=== PATIENT | female | born 1960 | race Caucasian/White ===

== ENCOUNTER → 2016-10-12 | Outpatient (CLI) | payer OTHER, MEDICARE ==
--- NOTE | 2016-10-12 09:40 | RAD ---
EXAM DESCRIPTION: XR KNEE 4 OR MORE VIEWS CLINICAL HISTORY: 55 y/o ,F, KNEE PAIN COMPARISON: None. IMPRESSION: Two views of the left knee. Arthroplasty noted. No hardware failure. No osseous lesion noted. Negative for fracture. No significant joint effusion. Electronically signed by: Arnaud Degroot MD 10/12/2016 09:39
== END ==
LOC: RAD 08:03
PROVIDERS: ATTEND Orthopaedic Surgery
DX: M25.562 Pain in left knee (principal); Z96.652 Presence of left artificial knee joint

== ENCOUNTER → 2016-10-13 | Outpatient (CLI) | payer OTHER, MEDICARE ==
--- NOTE | 2016-10-13 15:37 | MAM ---
EXAM DESCRIPTION: MAMMO BREAST SCREENING BILATERAL CAD, images were reviewed with CAD technology, R2 computer-aided detection. CLINICAL HISTORY: [facility]. COMPARISON: 2010. FINDINGS: Routine views are obtained. Scattered glandular pattern has a slightly nodular contour and is of increased mammographic density period pattern remains stable. No dominant mass, architectural distortion or clustered microcalcification.. IMPRESSION: Benign exam. BIRAD CATEGORY: 2 BENIGN RECOMMENDATIONS: FOLLOW-UP: Routine screening mammogram in one year. According to the [employer], yearly mammograms are recommended starting at age 40 and continuing as long as a woman is in good health. Any breast change noted on a breast self-exam should be reported promptly to the patient's healthcare provider. Breast MRI is recommended for women with an approximately 20-25% or greater lifetime risk of breast cancer, including women with a strong family history of breast or ovarian cancer and women who have been treated for Hodgkin's disease. Electronically signed by: Sharda Zuluaga 10/13/2016 15:35
== END ==
LOC: MAMMO 13:34
PROVIDERS: ATTEND Family Medicine
DX: Z12.31 Encounter for screening mammogram for malignant neoplasm of breast (principal)
CPT/HCPCS: 77052; G0202

== ENCOUNTER → 2016-10-19 | Outpatient (CLI) | payer OTHER, MEDICARE ==
--- NOTE | 2016-10-19 15:07 | MRI ---
EXAM DESCRIPTION: MR LUMBAR SPINE WITHOUT IV CONTRAST CLINICAL HISTORY: 55 y/o F, LUMBAR PAIN COMPARISON: None TECHNIQUE: Multi planar, multi sequence imaging of the lumbar spine was acquired without IV contrast. FINDINGS: Vertebral body height, alignment and marrow signal are unremarkable. Mild disc desiccation at L2-3 through L5-S1. No intervertebral disc height loss to posterior annular fissure noted at L5-S1. Conus terminates at L1-L2. L5-S1: Right facet degeneration. No spinal canal or neural foraminal narrowing. L4-L5: Bilateral mild facet degeneration. No spinal canal narrowing. There is mild bilateral neural foraminal narrowing from facet degeneration. No exiting nerve root contact. L3-L4: Mild facet degeneration. No spinal canal or neural foraminal narrowing. L2-L3: Unremarkable. L1-L2: Unremarkable. IMPRESSION: Today's exam is nearly normal except for mild facet degeneration from L3-4 through L5-S1 and mild bilateral neural foraminal narrowing at L4-5 only. No exiting or descending nerve root contact. No spinal canal narrowing. Electronically signed by: Arnaud Degroot MD 10/19/2016 15:06
== END ==
LOC: MRI 11:08
PROVIDERS: ATTEND Physician Assistant
DX: M47.816 Spondylosis without myelopathy or radiculopathy, lumbar region (principal); G89.4 Chronic pain syndrome; M54.5 Low back pain

== ENCOUNTER → 2016-11-02 | Outpatient (CLI) | payer OTHER, MEDICARE | END | disposition home or self-care (01) | LOC: GMAL 14:35 | PROVIDERS: ATTEND Family Medicine | DX: N39.0 Urinary tract infection, site not specified (principal) ==

== ENCOUNTER → 2016-12-09 | Outpatient (CLI) | payer OTHER, MEDICARE | END | disposition home or self-care (01) | LOC: GMA 16:53 | PROVIDERS: ATTEND Nurse Practitioner Acute Care | DX: N39.0 Urinary tract infection, site not specified (principal) ==

== ENCOUNTER → 2016-12-29 | Outpatient (CLI) | payer OTHER, MEDICARE | END | disposition home or self-care (01) | LOC: GMAL 10:57 | PROVIDERS: ATTEND Family Medicine | DX: N39.0 Urinary tract infection, site not specified (principal) ==

== ENCOUNTER → 2017-02-01 | Outpatient (CLI) | payer OTHER, MEDICARE ==
--- NOTE | 2017-02-01 14:26 | MAM ---
EXAM DESCRIPTION: Diagnostic Mammo,Left CLINICAL HISTORY: 56 years, Female, soreness in the upper outer aspect left breast COMPARISON: October 13, 2016 TECHNIQUE: CC and MLO digital mammograms with computer aided detection. FINDINGS: There are scattered fibroglandular densities. There is no dominant mass nor any suspicious microcalcifications. Benign microcalcifications are present. IMPRESSION: BI-RADS 2: BENIGN FOLLOW-UP: Routine mammography screening. Electronically signed by: Can Mcgraw MD 02/01/2017 2:25 PM CDT
== END | disposition home or self-care (01) ==
LOC: MAMMO 13:30
PROVIDERS: ATTEND Family Medicine
DX: N63 Unspecified lump in breast (principal)

== ENCOUNTER → 2017-03-04 | Outpatient (CLI) | payer OTHER, MEDICARE | LOC: GMA 17:46 | PROVIDERS: ATTEND Nurse Practitioner Acute Care | DX: N39.0 Urinary tract infection, site not specified (principal); Z87.440 Personal history of urinary (tract) infections ==

== ENCOUNTER → 2017-03-18 | Outpatient (CLI) | payer OTHER, MEDICARE | END | disposition home or self-care (01) | LOC: GMA 14:33 | PROVIDERS: ATTEND Nurse Practitioner Acute Care | DX: N39.0 Urinary tract infection, site not specified (principal) ==

== ENCOUNTER 2017-03-29 10:05 | Emergency (ER) | payer OTHER, MEDICARE ==
[2017-03-29 10:47] VITALS: BP 136/88; TEMP 98.7; O2SAT 94
--- NOTE | 2017-03-29 11:51 | ED.PDOC ---
History of Present Illness - General Chief Complaint: Problem Stated Complaint: uti Time Seen by Provider: 03/29/17 11:46 Source: patient Exam Limitations: no limitations - History of Present Illness Initial Comments: Patient presents complaining of bladder discomfort. Has chronic UTIs and was treated two days ago with rocephin. She says she is on chronic keflex. She also has chronic urinary retention. The discomfort is described as an intermittent cramping feeling. No other complaints. Timing/Duration: changing over time Severity: mild Improving Factors: nothing Worsening Factors: nothing Associated Symptoms: denies symptoms Allergies/Adverse Reactions: Allergies Butorphanol [From Stadol] Allergy (Severe, Verified 02/10/16 11:47) Cefprozil [From Cefzil] Allergy (Severe, Verified 02/10/16 11:47) Erythromycin Allergy (Severe, Verified 02/10/16 11:47) Hydromorphone [From Dilaudid] Allergy (Severe, Verified 02/10/16 11:47) Meperidine [From Demerol HCl] Allergy (Severe, Verified 02/10/16 11:47) Nalbuphine [From Nubain] Allergy (Severe, Verified 02/10/16 11:47) Penicillins Allergy (Severe, Verified 02/10/16 11:47) Zonisamide [From Zonegran] Allergy (Intermediate, Verified 02/10/16 11:47) Protective Adhesive Powder Adverse Reaction (Intermediate, Verified 02/10/16 11: 47) Other Causes red rash Home Medications: Ambulatory Orders Amlodipine Besylate [Norvasc] 10 mg PO DAILY 01/20/13 Citalopram HBr [Celexa] 20 mg PO HS 01/20/13 Clopidogrel Bisulfate [Plavix] 75 mg PO QD 01/20/13 Albuterol Sulfate [Proair Hfa] 108 mcg IN PRN PRN 02/07/14 Acetaminophen W/ Codeine [Tylenol W/ CODEINE #3] 1 ea PO PRN 09/23/15 Albuterol Sulfate Nebs [Proventil Nebs] 2.5 mg INH PRN PRN 09/23/15 Aspirin [Baby Aspirin] 81 mg PO QD 09/23/15 Esomeprazole Magnesium [Nexium] 40 mg PO DAILY 09/23/15 Folic Acid 400 mcg PO BID 09/23/15 Gabapentin 600 mg PO BID 09/23/15 Montelukast [Singulair] 10 mg PO BEDTIME 09/23/15 Nitroglycerin [Nitrostat] 0.4 mg SL PRN 09/23/15 Non-Formulary Medication 60 gm WKLY 09/23/15 Maxwell-3 Fatty Acids [Fish Oil] 1,200 mg PO BID 09/23/15 Potassium Gluconate 595 mg PO BID 09/23/15 Probiotic Product [Probiotic] 1 tab PO DAILY 09/23/15 Topiramate [Topamax] 200 mg PO BID 09/23/15 Vzfsmhi-Yqbixqxl-Hqljt Tab [Fiorinal Tab] 1 ea PO PRN PRN 12/23/15 Ibuprofen [Advil] 200 mg PO PRN 12/23/15 Cyclobenzaprine HCl [Flexeril] 10 mg PO BID PRN #20 tab 12/28/15 HYDROcodone 5MG/APAP 325MG [[place] 5/325] 1 ea PO Q4H PRN #90 tab 12/28/15 Potassium Chloride Tab [Micro-K] 10 meq PO DAILYBK #30 tab 12/28/15 Rivaroxaban [Xarelto] 10 mg PO QD #9 tab 12/28/15 Review of Systems - Review of Systems Constitutional: States: no symptoms reported EENTM: States: no symptoms reported Respiratory: States: no symptoms reported Cardiology: States: no symptoms reported Gastrointestinal/Abdominal: States: no symptoms reported Genitourinary: States: see HPI Musculoskeletal: States: no symptoms reported Skin: States: no symptoms reported Neurological: States: no symptoms reported Endocrine: States: no symptoms reported Hematologic/Lymphatic: States: no symptoms reported Past Medical History (General) - Patient Medical History Hx Seizures: No Hx Stroke: No Hx Dementia: No Hx Asthma: Yes Hx of COPD: Yes Hx Cardiac Disorders: Yes - [place] Hx Congestive Heart Failure: No Hx Pacemaker: No Hx Hypertension: Yes Hx Thyroid Disease: No Hx Diabetes: No Hx Gastroesophageal Reflux: Yes Hx Renal Disease: No Hx Cancer: No Hx of HIV: No Hx Hepatitis C: No Hx MRSA: Yes MRSA Source:: Wound - Vaccination History Hx Tetanus, Diphtheria Vaccination: Yes Hx Influenza Vaccination: Yes Hx Pneumococcal Vaccination: Yes - Social History Hx Tobacco Use: No Hx Alcohol Use: No Hx Substance Use: No Hx Substance Use Treatment: No Hx Depression: No Hx Physical Abuse: No Hx Emotional Abuse: No Hx Suspected Abuse: No - Female History Patient : No Family Medical History - Family History Mother Family History: Unknown Living Status: Still Living Hx Cardiac Disease: Yes Physical Exam - Physical Exam General Appearance: Alert Respiratory: lungs clear Cardiovascular/Chest: regular rate, rhythm Gastrointestinal/Abdominal: normal bowel sounds, non tender, soft Progress - Progress Progress: 03/29/17 11:51 UA negative. Departure - Departure Clinical Impression: Bladder spasms Disposition: Discharge to Home or Self Care Condition: Good Departure Forms: ED Discharge - Pt. Copy, Patient Portal Self Enrollment Diet: resume usual diet Activity: increase activity as tolerated Referrals: Blayne Landers III, MD [Primary Care Provider] - 1-2 Weeks Home Medications: Ambulatory Orders Amlodipine Besylate [Norvasc] 10 mg PO DAILY 01/20/13 Citalopram HBr [Celexa] 20 mg PO HS 01/20/13 Clopidogrel Bisulfate [Plavix] 75 mg PO QD 01/20/13 Albuterol Sulfate [Proair Hfa] 108 mcg IN PRN PRN 02/07/14 Acetaminophen W/ Codeine [Tylenol W/ CODEINE #3] 1 ea PO PRN 09/23/15 Albuterol Sulfate Nebs [Proventil Nebs] 2.5 mg INH PRN PRN 09/23/15 Aspirin [Baby Aspirin] 81 mg PO QD 09/23/15 Esomeprazole Magnesium [Nexium] 40 mg PO DAILY 09/23/15 Folic Acid 400 mcg PO BID 09/23/15 Gabapentin 600 mg PO BID 09/23/15 Montelukast [Singulair] 10 mg PO BEDTIME 09/23/15 Nitroglycerin [Nitrostat] 0.4 mg SL PRN 09/23/15 Non-Formulary Medication 60 gm WKLY 09/23/15 Maxwell-3 Fatty Acids [Fish Oil] 1,200 mg PO BID 09/23/15 Potassium Gluconate 595 mg PO BID 09/23/15 Probiotic Product [Probiotic] 1 tab PO DAILY 09/23/15 Topiramate [Topamax] 200 mg PO BID 09/23/15 Bbcelon-Ivecqxqf-Afets Tab [Fiorinal Tab] 1 ea PO PRN PRN 12/23/15 Ibuprofen [Advil] 200 mg PO PRN 12/23/15 Cyclobenzaprine HCl [Flexeril] 10 mg PO BID PRN #20 tab 12/28/15 HYDROcodone 5MG/APAP 325MG [[place] 5/325] 1 ea PO Q4H PRN #90 tab 12/28/15 Potassium Chloride Tab [Micro-K] 10 meq PO DAILYBK #30 tab 12/28/15 Rivaroxaban [Xarelto] 10 mg PO QD #9 tab 12/28/15 Additional Instructions: See your regular doctor this week regarding possible treatment for bladder spasms.
== END 2017-03-29 12:03 | disposition home or self-care (01) ==
LOC: ER 10:05
DX: N32.89 Other specified disorders of bladder (principal); Z79.899 Other long term (current) drug therapy; Z79.82 Long term (current) use of aspirin; Z79.02 Long term (current) use of antithrombotics/antiplatelets; Z88.8 Allergy status to other drugs, medicaments and biological substances; Z88.0 Allergy status to penicillin; Z88.4 Allergy status to anesthetic agent

== ENCOUNTER → 2017-03-30 | Outpatient (CLI) | payer OTHER, MEDICARE | LOC: GMAL 16:45 | PROVIDERS: ATTEND Family Medicine | DX: Z87.440 Personal history of urinary (tract) infections (principal) ==

== ENCOUNTER → 2017-05-07 | Outpatient (CLI) | payer OTHER, MEDICARE ==
--- NOTE | 2017-05-08 22:15 | MRI ---
EXAM DESCRIPTION: Lumbar Spine w/o Contrast CLINICAL HISTORY: PAIN COMPARISON: MRI lumbar spine 10/19/2016. TECHNIQUE: Multiplanar, multiple standard sequences, non contrast MRI, lumbar spine. FINDINGS: L5-S1: Mild disc desiccation. Posterior midline small annular fissure with tiny bulge. Mild to moderate right foraminal narrowing and mild left foraminal narrowing. Mild canal narrowing. Minimal flavum ligament hypertrophy. L4-5: Minimal disc desiccation. Disc space preserved. No significant canal narrowing. Minimal facet hypertrophy more on the left. Schmorl's node in anterior right L4 inferior endplate. No foraminal stenosis. L3-4: Minimal disc desiccation. No disc bulging or disc space loss. Minimal hypertrophy of the posterior ligaments. No canal or foraminal stenosis. L2-3: Minimal disc desiccation with no bulging and disc space preserved. Posterior elements are unremarkable. Canal and foramina are patent. L1-2: Unremarkable. T12-L1: Minimal anterior bulge and endplate ridging. Otherwise negative. Conus terminates at L1. No scoliosis. Paravertebral soft tissues unremarkable. Normal marrow signal in the remaining vertebral bodies and the posterior elements. Vertebral bodies are not compressed at any level. IMPRESSION: 1. Disc desiccation L5-S1 and L2-3. No significant bulging. Posterior midline annular fissure L5-S1. Mild to moderate right foraminal narrowing at L5-S1. This has progressed since the prior study. 2. Minimal disc desiccation L4-5 and no significant bulging. Schmorl's node in the anterior RIGHT L4 inferior endplate. Stable since the prior study. Electronically signed by: Omid Braden MD 05/08/2017 10:14 PM CDT
--- NOTE | 2017-05-09 08:06 | MRI ---
Procedure: MR RIGHT HIP WITHOUT IV CONTRAST Exam Date: 05/07/2017 12:00 AM CDT Ordering Provider: GLORIA HUGGINS Clinical Indication: Right hip pain Comparison: None TECHNIQUE: MRI of the right hip was performed according to routine protocol with both large and small field of view imaging. FINDINGS: No hip joint abnormality is identified. There is no evidence of labral tear and no paralabral cyst is present. No significant hip joint effusion. No femoral head or femoral neck abnormality is present. Gluteus minimus and medius tendons are intact. There is mild peritrochanteric edema without significant fluid in the trochanteric bursa. Findings are nonspecific and may represent mild trochanteric bursitis. Normal Iliopsoas tendon and lesser trochanter. No muscle abnormality is identified. No masses. No abnormality is present at the hip adductor tendons or pubic symphysis or pubic rami. No sacral or sacroiliac abnormality. Pirformis muscles are symmetric. The proximal hamstring tendon complex insertion at the ischium is intact. No pelvis mass or free fluid. IMPRESSION: 1. Mild peritrochanteric soft tissue edema without fluid in the trochanteric bursa. This may represent mild trochanteric bursitis. Otherwise, unremarkable MRI of the right hip. Electronically signed by: Edwin Leal MD 05/09/2017 8:05 AM CDT
== END | disposition home or self-care (01) ==
LOC: MRI 09:53
PROVIDERS: ATTEND Psychiatry & Neurology Neurology
DX: F01.50 Vascular dementia, unspecified severity, without behavioral disturbance, psychotic disturbance, mood disturbance, and anxiety (principal); G43.119 Migraine with aura, intractable, without status migrainosus; G47.33 Obstructive sleep apnea (adult) (pediatric); G61.81 Chronic inflammatory demyelinating polyneuritis; M25.551 Pain in right hip; M35.00 Sjogren syndrome, unspecified

== ENCOUNTER → 2017-06-24 | Outpatient (CLI) | payer BC, MEDICARE ==
--- NOTE | 2017-06-26 16:40 | RAD ---
Examination: XR HIP 2 OR MORE VIEWS dated 06/24/2017 12:00 AM CDT History: HIP PAIN Comparison: MRI of the hips 05/07/2017 Technique: Two views of the right hip FINDINGS AND IMPRESSION: No acute fracture or dislocation. No osseous lesions, abnormal sclerosis, or osseous erosions. Mild degenerative changes. Electronically signed by: Paxton Oliveira MD 06/26/2017 4:39 PM CDT
--- NOTE | 2017-06-26 16:41 | RAD ---
Examination: XR PELVIS 1-2 VIEWS dated 06/24/2017 12:00 AM CDT History: HIP PAIN Comparison: MRI of the hips 05/07/2017 Technique: Frontal view of the pelvis FINDINGS AND IMPRESSION: Intact pelvic ring. Symmetric SI joints. Mild degenerative changes of the hips with anatomic alignment. Electronically signed by: Paxton Oliveira MD 06/26/2017 4:40 PM CDT
== END | disposition home or self-care (01) ==
LOC: RAD 07:56
PROVIDERS: ATTEND Orthopaedic Surgery
DX: M25.551 Pain in right hip (principal)

== ENCOUNTER 2017-09-12 12:52 | Emergency (ER) | payer BC, MEDICARE ==
[2017-09-12 13:16] VITALS: O2SAT 98
--- NOTE | 2017-09-12 13:30 | ED.PDOC ---
History of Present Illness - General Chief Complaint: Trauma Stated Complaint: fall Time Seen by Provider: 09/12/17 13:17 Source: patient, RN notes reviewed, Vital Signs reviewed, family - Exam Limitations: no limitations - History of Present Illness Initial Comments: Patient presents to ER due to a fall at home just prior to arrival. Reports she was going out to the car and then next thing she knew she was face down on the ground. They have 3 small steps out of the house and she thinks she lost her balance on the last step. Denies LOC. She has lots of problems with balance. is concerned that her face hit the side of the car when she fell. She has pain and swelling of her L forehead and cheek and pain of L anterior chest. Denies neck pain. Occurred: just prior to arrival Severity: mild Pain Location: head - L forehead, face - L cheek, chest - L anterior chest Method of Injury: fall Improving Factors: rest Worsening Factors: movement Loss of Consciousness: no loss of consciousness Associated Symptoms (Fall): chest pain, headache Allergies/Adverse Reactions: Allergies Butorphanol [From Stadol] Allergy (Severe, Verified 09/12/17 13:04) Cefprozil [From Cefzil] Allergy (Severe, Verified 09/12/17 13:04) Erythromycin Allergy (Severe, Verified 09/12/17 13:04) Hydromorphone [From Dilaudid] Allergy (Severe, Verified 09/12/17 13:04) Meperidine [From Demerol HCl] Allergy (Severe, Verified 09/12/17 13:04) Nalbuphine [From Nubain] Allergy (Severe, Verified 09/12/17 13:04) Penicillins Allergy (Severe, Verified 09/12/17 13:04) Zonisamide [From Zonegran] Allergy (Intermediate, Verified 09/12/17 13:04) Protective Adhesive Powder Adverse Reaction (Intermediate, Verified 09/12/17 13: 04) Other Causes red rash Home Medications: Ambulatory Orders Amlodipine Besylate [Norvasc] 10 mg PO DAILY 01/20/13 Citalopram HBr [Celexa] 20 mg PO HS 01/20/13 Clopidogrel Bisulfate [Plavix] 75 mg PO QD 01/20/13 Albuterol Sulfate [Proair Hfa] 108 mcg IN PRN PRN 02/07/14 Acetaminophen W/ Codeine [Tylenol W/ CODEINE #3] 1 ea PO PRN 09/23/15 Albuterol Sulfate Nebs [Proventil Nebs] 2.5 mg INH PRN PRN 09/23/15 Aspirin [Baby Aspirin] 81 mg PO QD 09/23/15 Esomeprazole Magnesium [Nexium] 40 mg PO DAILY 09/23/15 Folic Acid 400 mcg PO BID 09/23/15 Gabapentin 600 mg PO BID 09/23/15 Montelukast [Singulair] 10 mg PO BEDTIME 09/23/15 Nitroglycerin [Nitrostat] 0.4 mg SL PRN 09/23/15 Non-Formulary Medication 60 gm WKLY 09/23/15 [place]-3 Fatty Acids [Fish Oil] 1,200 mg PO BID 09/23/15 Potassium Gluconate 595 mg PO BID 09/23/15 Probiotic Product [Probiotic] 1 tab PO DAILY 09/23/15 Topiramate [Topamax] 200 mg PO BID 09/23/15 Ubhnwjh-Jrjszbnu-Taqkk Tab [Fiorinal Tab] 1 ea PO PRN PRN 12/23/15 Ibuprofen [Advil] 200 mg PO PRN 12/23/15 Cyclobenzaprine HCl [Flexeril] 10 mg PO BID PRN #20 tab 12/28/15 HYDROcodone 5MG/APAP 325MG [[place] 5/325] 1 ea PO Q4H PRN #90 tab 12/28/15 Potassium Chloride Tab [Micro-K] 10 meq PO DAILYBK #30 tab 12/28/15 Rivaroxaban [Xarelto] 10 mg PO QD #9 tab 12/28/15 Review of Systems - Review of Systems Constitutional: States: no symptoms reported EENTM: States: see HPI, nose pain. Denies: throat pain, mouth pain Respiratory: States: no symptoms reported Cardiology: States: no symptoms reported Gastrointestinal/Abdominal: States: no symptoms reported Musculoskeletal: States: see HPI, muscle pain - L anterior chest. Denies: back pain, joint pain, neck pain Skin: States: other - Abrasions - forehead, nose, cheek and R lower leg Neurological: States: headache. Denies: numbness, paresthesia, tingling, tremors, weakness All other Systems: No Change from Baseline Past Medical History (General) - Patient Medical History Hx Seizures: No Hx Stroke: No Hx Dementia: No Hx Asthma: Yes Hx of COPD: Yes Hx Cardiac Disorders: Yes - ID Hx Congestive Heart Failure: No Hx Pacemaker: No Hx Hypertension: Yes Hx Thyroid Disease: No Hx Diabetes: No Hx Gastroesophageal Reflux: Yes Hx Renal Disease: No Hx Cancer: No Hx of HIV: No Hx Hepatitis C: No Hx MRSA: Yes MRSA Source:: Wound Surgical History: appendectomy, Hysterectomy, other - Vaccination History Hx Tetanus, Diphtheria Vaccination: Yes Hx Influenza Vaccination: Yes Hx Pneumococcal Vaccination: Yes - Social History Hx Tobacco Use: No Hx Alcohol Use: No Hx Substance Use: No Hx Substance Use Treatment: No Hx Depression: No Hx Physical Abuse: No Hx Emotional Abuse: No Hx Suspected Abuse: No - Female History Patient is a Female of Child Bearing Age (10 -59 yrs old): No Patient : No Family Medical History - Family History Mother Family History: Unknown Living Status: Still Living Hx Cardiac Disease: Yes Physical Exam - Physical Exam General Appearance: Alert, Comfortable, No apparent distress, Obese, Well Developed, Well Groomed, Well Hydrated, Well Nourished Head Injury: swelling - Left forehead with superficial abrasion, tenderness, other - Nose: small abrasion and erythema of bridge of nose, L cheek: erythema, swelling and mild tenderness. Eye Exam: bilateral normal ENT Exam: hearing grossly normal, no evidence of ENT injury, no dental injury Neck Exam: non-tender, full range of motion, normal alignment, normal inspection Cardiovascular/Respiratory: regular rate, rhythm, no M/R/G, normal peripheral pulses, normal breath sounds, no respiratory distress, other - L breast and anterior chest wall - tender to palpation but no increased pain with deep breath , increased pain with movement of L arm Gastrointestinal/Abdominal: normal bowel sounds, non tender, soft, no organomegaly, no pulsatile mass Extremity Exam: no evidence of injury, normal range of motion, non-tender, no pedal edema, pelvis stable Neurologic: admittance attendant II-XII nml as tested, no motor/sensory deficits, alert, normal mood/affect, oriented x 3 Skin Exam: normal color - except as noted above, warm/dry Comments: Vital Signs 09/12/17 12:55 Temperature 97.4 F L Pulse Rate [ 60 pulse ox] Respiratory 20 Rate Blood Pressure 139/80 [Left Arm] O2 Sat by Pulse 98 Oximetry - [place] Com[place] Score Best Eye Response (Madi): (4) open spontaneously Best Verbal Response ([place]): (5) oriented Best Motor Response ([place]): (6) obeys commands [place] Total: 15 Progress - EKG/XRAY/CT XRAY: chest - No acute findings, no rib fractures CT Ordered: Yes - Head: No acute findings per Rad Departure - Departure Clinical Impression: Contusion of nose, initial encounter Contusion of rib Qualifiers: Encounter type: initial encounter Contusion of forehead Qualifiers: Encounter type: initial encounter Qualified Code(s): S00.83XA - Contusion of other part of head, initial encounter Contusion of cheek Qualifiers: Encounter type: initial encounter Qualified Code(s): S00.83XA - Contusion of other part of head, initial encounter Time of Disposition: 15:05 Disposition: Discharge to Home or Self Care Condition: Good Departure Forms: ED Discharge - Pt. Copy, Patient Portal Self Enrollment Instructions: DI for Contusion Diet: resume usual diet Activity: increase activity as tolerated Referrals: Blayne Landers III, MD [Primary Care Provider] - 1-2 Weeks Home Medications: Ambulatory Orders Amlodipine Besylate [Norvasc] 10 mg PO DAILY 01/20/13 Citalopram HBr [Celexa] 20 mg PO HS 01/20/13 Clopidogrel Bisulfate [Plavix] 75 mg PO QD 01/20/13 Albuterol Sulfate [Proair Hfa] 108 mcg IN PRN PRN 02/07/14 Acetaminophen W/ Codeine [Tylenol W/ CODEINE #3] 1 ea PO PRN 09/23/15 Albuterol Sulfate Nebs [Proventil Nebs] 2.5 mg INH PRN PRN 09/23/15 Aspirin [Baby Aspirin] 81 mg PO QD 09/23/15 Esomeprazole Magnesium [Nexium] 40 mg PO DAILY 09/23/15 Folic Acid 400 mcg PO BID 09/23/15 Gabapentin 600 mg PO BID 09/23/15 Montelukast [Singulair] 10 mg PO BEDTIME 09/23/15 Nitroglycerin [Nitrostat] 0.4 mg SL PRN 09/23/15 Non-Formulary Medication 60 gm WKLY 09/23/15 [place]-3 Fatty Acids [Fish Oil] 1,200 mg PO BID 09/23/15 Potassium Gluconate 595 mg PO BID 09/23/15 Probiotic Product [Probiotic] 1 tab PO DAILY 09/23/15 Topiramate [Topamax] 200 mg PO BID 09/23/15 Uyywctk-Lhdmghfv-Ljnos Tab [Fiorinal Tab] 1 ea PO PRN PRN 12/23/15 Ibuprofen [Advil] 200 mg PO PRN 12/23/15 Cyclobenzaprine HCl [Flexeril] 10 mg PO BID PRN #20 tab 12/28/15 HYDROcodone 5MG/APAP 325MG [[place] 5/325] 1 ea PO Q4H PRN #90 tab 12/28/15 Potassium Chloride Tab [Micro-K] 10 meq PO DAILYBK #30 tab 12/28/15 Rivaroxaban [Xarelto] 10 mg PO QD #9 tab 12/28/15
--- NOTE | 2017-09-12 14:49 | RAD ---
PROCEDURE: Chest,2 Views CLINICAL HISTORY: L chest pain s/p fall INDICATION: Same as above COMPARISON: X-ray of the left-sided ribs TECHNIQUE: PA and and lateral chest radiographs were obtained. FINDINGS: There is no gross evidence of acute thoracic bony trauma. The tip of the right-sided Mediport catheter terminates at the sinoatrial junction in good position There are no discrete airspace infiltrates, pneumothoraces or pleural effusions. The pulmonary vascularity is normal The cardiomediastinal silhouette is unremarkable for patient's age and sex. IMPRESSION: There is no acute pleural-parenchymal process seen in the imaged lung mckeon. Place of interpretation: Teler[facility]iology. Electronically signed by: Deuce Castro MD 09/12/2017 2:48 PM [facility] Workstation: [id number]
--- NOTE | 2017-09-12 14:51 | RAD ---
EXAM DESCRIPTION: X-RAY left Ribs CLINICAL HISTORY: Left side chest pain COMPARISON: A stick site and on the same day TECHNIQUE: 3.0 views of the left sided ribs. FINDINGS: There is no evidence of fractures or dislocations involving the left sided ribs. There are no focal bony lesions or periosteal reactions involving the left-sided ribs. The visualized lung mckeon do not show any focal infiltrates, pleural effusions or pneumothoraces. The adjacent soft tissues are unremarkable. Growth plate injuries, if present, at times, may not be visualized radiographically. IMPRESSION: Negative for acute or significant findings involving the left-sided ribs. Electronically signed by: Deuce Castro MD 09/12/2017 2:50 PM [facility] Workstation: [id number]
--- NOTE | 2017-09-12 14:56 | CT ---
EXAM DESCRIPTION: Head CLINICAL HISTORY: 56 years Female, Pain/contusion L forehead s/p fall COMPARISON: July 09, 2014 TECHNIQUE: Axial imaging. No IV contrast. Sagittal and coronal reconstruction FINDINGS: Moderate periventricular white matter microangiopathic changes. No masses are seen. There is no evidence of intracranial hemorrhage. Ventricular structures are nondilated. Small to moderate sized mucus retention cyst noted within the left maxillary sinus. IMPRESSION: Moderate periventricular microangiopathic changes. No evidence of intracranial hemorrhage. Small to moderate-sized left maxillary sinus mucosal retention cyst Electronically signed by: Conner Magaña 09/12/2017 2:55 PM [facility]
[2017-09-12 16:23] VITALS: BP 130/84; TEMP 97
== END 2017-09-12 15:10 | disposition home or self-care (01) ==
LOC: ER 12:52
DX: S00.83XA Contusion of other part of head, initial encounter (principal); S00.33XA Contusion of nose, initial encounter; S20.212A Contusion of left front wall of thorax, initial encounter; S80.811A Abrasion, right lower leg, initial encounter; J45.909 Unspecified asthma, uncomplicated; J44.9 Chronic obstructive pulmonary disease, unspecified; I25.2 Old myocardial infarction; I10 Essential (primary) hypertension; Z79.82 Long term (current) use of aspirin; Z79.899 Other long term (current) drug therapy; Z88.0 Allergy status to penicillin; Z88.8 Allergy status to other drugs, medicaments and biological substances; W10.9XXA Fall (on) (from) unspecified stairs and steps, initial encounter; Y92.008 Other place in unspecified non-institutional (private) residence as the place of occurrence of the external cause

== ENCOUNTER → 2018-04-07 | Outpatient (CLI) | payer BC, MEDICARE | LOC: LAB.O 11:41 | PROVIDERS: ATTEND Psychiatry & Neurology Neurology | DX: Z79.899 Other long term (current) drug therapy (principal) ==

== ENCOUNTER → 2018-04-08 | Outpatient (CLI) | payer BC, MEDICARE | LOC: GMAJS 10:46 | PROVIDERS: ATTEND Physician Assistant | DX: R30.0 Dysuria (principal) ==

== ENCOUNTER → 2018-04-20 | Outpatient (CLI) | payer BC, MEDICARE | LOC: GMATM 17:12 | PROVIDERS: ATTEND Nurse Practitioner Family | DX: R10.13 Epigastric pain (principal) ==

== ENCOUNTER → 2018-05-12 | Outpatient (CLI) | payer BC, MEDICARE ==
--- NOTE | 2018-05-16 08:03 | US ---
EXAM DESCRIPTION: Diagnostic Mammo,Bilateral: Digital Mammography CLINICAL HISTORY: 57 yearsFemaleDX SAI MAMM palpable masses in tenderness upper inner quadrant of the posterior right breast in the lower outer quadrant of the posterior right breast. No history of breast cancer. No family history of breast cancer. Childbirth. Postmenopausal. Has taken HRT prior left breast biopsy. COMPARISON: 2-D digital screening bilateral study 10/13/2016. Diagnostic digital left breast mammography 02/01/2017. TECHNIQUE: Bilateral CC LM MLO projection full-field images, digital mammographic tomosynthesis technique. Bilateral full-field 2-D digital MLO images. CAD not utilized. FINDINGS: The breast parenchymal density pattern is: Scattered areas of fibroglandular density. No skin thickening or nipple retraction skin marker on the posterior lower outer right breast in the posterior upper inner right breast. Injection port for VAD is located in the superior midline right breast abutting the chest wall. Bilateral solitary microcalcifications. No new focal, stellate mass or density, focal asymmetry , and no suspicious microcalcifications bilaterally. Specifically no mammographic abnormalities abutting the skin markers. ULTRASOUND: Scanning the lower outer quadrant of the right breast posteriorly at the 8:00 position 15 cm from the nipple. Hypoechoic nodule measuring 4.9 x 4.7 mm with well-defined circumscribed echogenic tarango and parallel orientation. Variable posterior enhancement and shadowing. No definite calcifications. Central echogenicity with vascularity. Tender to the touch. No distinct cyst or large calcifications or abnormal vascularity. Minimal redness of the overlying skin. No parenchymal edema. Suggestive of a reactive lymph node. Scanning of the upper inner quadrant of the posterior third of the right breast, with emphasis on the 200 clock position, 10 cm from the nipple. Heterogeneous fatty echotexture. No distinct solid mass or cyst. No large calcifications or parenchymal edema. No overlying skin changes. No abnormal vascularity. Not tender to the touch. IMPRESSION: BI-RADS CATEGORY: 3 - PROBABLY BENIGN. Management: Short interval (6-month) follow-up digital mammography right breast and targeted right breast ultrasound.. Written communication explaining the IMPRESSION and follow-up will be mailed to the patient and referring care provider Electronically signed by: Omid Braden MD 05/12/2018 4:46 PM CDT
--- NOTE | 2018-05-16 08:09 | US ---
EXAM DESCRIPTION: Breast,Right: Ultrasound CLINICAL HISTORY: 57 yearsFemaleRIGHT BREAST US. Palpable mass posterior lower outer quadrant and posterior upper inner quadrant right breast. COMPARISON: Digital diagnostic mammogram right breast on this visit. TECHNIQUE: Transcutaneous scanning of the right breast utilizing hugo-scale and Doppler modes. Scanning performed by the lead net software developer and Dr. Braden. FINDINGS: Scanning the lower outer quadrant of the right breast posteriorly at the 8:00 position 15 cm from the nipple. Hypoechoic nodule measuring 4.9 x 4.7 mm with well-defined circumscribed echogenic tarango and parallel orientation. Variable posterior enhancement and shadowing. No definite calcifications. Central echogenicity with vascularity. Tender to the touch. No distinct cyst or large calcifications or abnormal vascularity. Minimal redness of the overlying skin. No parenchymal edema. Suggestive of a reactive lymph node. Scanning of the upper inner quadrant of the posterior third of the right breast, with emphasis on the 200 clock position, 10 cm from the nipple. Heterogeneous fatty echotexture. No distinct solid mass or cyst. No large calcifications or parenchymal edema. No overlying skin changes. No abnormal vascularity. Not tender to the touch. IMPRESSION: 1. Bi-Rads Category 3: Probably Benign Findings. 2. Please refer to bilateral diagnostic digital mammographic examination and report on this visit. The FINDINGS and the FOLLOW-UP plan were reviewed in person with the patient after the examination. Written communication explaining the IMPRESSION and FOLLOW-UP will be mailed to the patient and referring care provider. Electronically signed by: Omid Braden MD 05/12/2018 4:47 PM CDT
== END ==
LOC: MAMMO 13:30
PROVIDERS: ATTEND Nurse Practitioner Family
DX: R92.8 Other abnormal and inconclusive findings on diagnostic imaging of breast (principal)
CPT/HCPCS: 76641; 77066; G0279

== ENCOUNTER → 2018-05-16 | Outpatient (CLI) | payer BC, MEDICARE | LOC: GMAL 17:38 | PROVIDERS: ATTEND Family Medicine | DX: R30.0 Dysuria (principal) ==

== ENCOUNTER → 2018-05-26 | Outpatient (CLI) | payer BC, MEDICARE | LOC: GMAL 11:29 | PROVIDERS: ATTEND Family Medicine | DX: E53.8 Deficiency of other specified B group vitamins (principal); R53.82 Chronic fatigue, unspecified; E55.9 Vitamin D deficiency, unspecified ==

== ENCOUNTER → 2018-06-30 | Outpatient (CLI) | payer BC, MEDICARE | LOC: GMAL 14:15 | PROVIDERS: ATTEND Family Medicine | DX: R30.0 Dysuria (principal) ==

== ENCOUNTER → 2018-08-31 | Outpatient (CLI) | payer BC, MEDICARE | LOC: GMAL 16:45 | PROVIDERS: ATTEND Emergency Medicine | DX: E55.9 Vitamin D deficiency, unspecified (principal) ==

== ENCOUNTER → 2018-09-06 | Outpatient (CLI) | payer BC, MEDICARE ==
--- NOTE | 2018-09-06 15:25 | US ---
US THYROID CLINICAL STATEMENT: NODULE. . No palpable mass. No previous thyroid surgery or therapy. COMPARISON: Thyroid ultrasound 08/25/2010. FINDINGS: Size right thyroid lobe: 4.2 x 1.8 x 1.0 cm Size left thyroid lobe: 4.5 x 1.8 x 1.5 cm Size isthmus: 0.18 cm Estimated total number of nodules greater than or equal to 1 cm: 1 Nodule 1: Size: 0.4 x 0.4 x 0.2 cm. Not seen on the prior study. Location: Right Lower Composition: solid or almost completely solid: 2 points Echogenicity: hypoechoic: 2 points Shape: wider than tall: 0 points Margins: smooth: 0 points. No significant vascularity. Echogenic foci: none: 0 points ACR Total Points: 4; ACR TI-RADS risk category: TR4 - moderately suspicious nodule. Nodule 2: Size: 2.5 x 1.7 x 1.3 cm. 1.5 x 0.9 x 0.8 cm on the prior study. Location: Left Mid Composition: solid or almost completely solid: 2 points Echogenicity: hypoechoic: 2 points Shape: wider than tall: 0 points Margins: smooth: 0 points. Vascular margins. Echogenic foci: none: 0 points ACR Total Points: 4; ACR TI-RADS risk category: TR4 - moderately suspicious nodule. Nodule 3: Size: 0.5 x 0.5 x 0.4 cm. Stable since the prior study. Location: Left Lower Composition: cystic or completely cystic: 0 points Echogenicity: anechoic: 0 points Shape: wider than tall: 0 points Margins: smooth: 0 points Echogenic foci: none: 0 points ACR Total Points: 0; ACR TI-RADS risk category: TR1 - benign nodule The soft tissue around the thyroid gland shows no dominant solid mass or cyst. No large calcification or parenchymal edema. No overlying skin changes. No abnormal vascularity. IMPRESSION: 1. Nodule 1: ACR TI-RADS 2017 Category TR4. Recommend: No further follow-up.. Recommendations based upon [employer] Best [employer] recommendations and ACR TI-RADS 2017 guidelines. Please see below*. 2. Nodule 2: ACR TI-RADS 2017 Category TR4. Enlarged since the prior study. Recommend: Ultrasound-guided fine needle aspiration. 3. Nodule 3: ACR TI-RADS 2017 Category TR1. Recommend: No further follow-up. 4. The soft tissue around the thyroid gland is unremarkable. *ACR TI-RADS 2017 Recommendations: TR1: No FNA or follow up TR2: No FNA or follow up TR3: FNA if >/= 2.5 cm, follow up if 1.5 - 2.4 cm in 1, 3, and 5 years TR4: FNA if >/= 1.5 cm, follow up if 1.0 - 1.4 cm in 1, 2, 3, and 5 years TR5: FNA if >/= 1.0 cm, follow up if 0.5 - 0.9 cm every year for 5 years ACR TI-RADS recommends that no more than two nodules with the highest ACR TI-RADS total point should be biopsied and no more than four nodules should be followed. Electronically signed by: Omid Braden MD 09/06/2018 3:24 PM [facility]
== END ==
LOC: US 11:00
PROVIDERS: ATTEND Family Medicine
DX: E04.1 Nontoxic single thyroid nodule (principal)

== ENCOUNTER 2018-12-20 20:56 | Emergency (ER) | payer BC, MEDICARE ==
[2018-12-20 21:14] VITALS: TEMP 98.3; O2SAT 95
--- NOTE | 2018-12-20 21:42 | RAD ---
EXAM: XR Pelvis, 1 or 2 Views CLINICAL HISTORY: The patient is 58 years old and is Female; fall with pain TECHNIQUE: Frontal view of the pelvis. COMPARISON: No relevant prior studies available. FINDINGS: BONES/JOINTS: Unremarkable. No acute fracture. No dislocation. SOFT TISSUES: Unremarkable. IMPRESSION: Normal pelvis radiograph. Electronically signed by: Naila aWtson MD 12/20/2018 9:40 PM CDT
--- NOTE | 2018-12-20 21:43 | RAD ---
EXAM: XR Lumbar Spine, 2 or 3 Views CLINICAL HISTORY: The patient is 58 years old and is Female; fall with pain TECHNIQUE: Frontal and lateral views of the lumbar spine. COMPARISON: No relevant prior studies available. FINDINGS: VERTEBRAE: Endplate irregularity of T11-T12 is noted. The vertebral body heights are relatively maintained. No acute fracture. Normal alignment. DISC SPACES: Mild facet arthropathy and intervertebral disc space narrowing is noted throughout the lumbar spine. SOFT TISSUES: Unremarkable. IMPRESSION: No acute findings. Electronically signed by: Naila Watson MD 12/20/2018 9:40 PM CDT
--- NOTE | 2018-12-20 21:44 | RAD ---
EXAM: XR Sacrum and Coccyx, 2 or more Views CLINICAL HISTORY: The patient is 58 years old and is Female; fall with pain TECHNIQUE: Frontal and lateral views of the sacrum and coccyx. COMPARISON: No relevant prior studies available. FINDINGS: SACRUM/COCCYX: Unremarkable as visualized. No acute fracture. VERTEBRAE: Visualized lumbar vertebrae are unremarkable. SOFT TISSUES: Unremarkable. IMPRESSION: Negative sacrum and coccyx radiographs. Electronically signed by: Naila Watson MD 12/20/2018 9:41 PM CDT
--- NOTE | 2018-12-20 21:58 | ED.PDOC ---
History of Present Illness - General Chief Complaint: Trauma Stated Complaint: fell getting off vehicle Time Seen by Provider: 12/20/18 20:59 Source: patient Exam Limitations: no limitations - History of Present Illness Initial Comments: The patient is a 58-year-old female presenting to the emergency room after having fallen while trying to get in an SUV. She fell backwards and landed on packed dirt. She mainly had her tailbone is having some pain there. She was ambulatory since. Pain is primarily in the coccyx area. There is a very mild abrasion there. No definite palpable deformity. No neurological changes. She did hit her head very lightly. No loss of consciousness. No significant bruising. No obvious injury elsewhere though I suspect she will raphael ve numerous more sore areas tomorrow. Timing/Duration: momentarily Severity: moderate Improving Factors: immobilization Worsening Factors: movement Associated Symptoms: denies symptoms Allergies/Adverse Reactions: Allergies Butorphanol [From Stadol] Allergy (Severe, Verified 09/12/17 13:04) Cefprozil [From Cefzil] Allergy (Severe, Verified 09/12/17 13:04) Erythromycin Allergy (Severe, Verified 09/12/17 13:04) Hydromorphone [From Dilaudid] Allergy (Severe, Verified 09/12/17 13:04) Meperidine [From Demerol HCl] Allergy (Severe, Verified 09/12/17 13:04) Nalbuphine [From Nubain] Allergy (Severe, Verified 09/12/17 13:04) Penicillins Allergy (Severe, Verified 09/12/17 13:04) Zonisamide [From Zonegran] Allergy (Intermediate, Verified 09/12/17 13:04) Protective Adhesive Powder Adverse Reaction (Intermediate, Verified 09/12/17 13 :04) Other Causes red rash Home Medications: Ambulatory Orders Amlodipine Besylate [Norvasc] 10 mg PO DAILY 01/20/13 Citalopram HBr [Celexa] 20 mg PO HS 01/20/13 Albuterol Sulfate [Proair Hfa] 108 mcg IN PRN PRN 02/07/14 Albuterol Sulfate Nebs [Proventil Nebs] 2.5 mg INH PRN PRN 09/23/15 Gabapentin 600 mg PO BID 09/23/15 Montelukast [Singulair] 10 mg PO BEDTIME 09/23/15 Nitroglycerin [Nitrostat] 0.4 mg SL PRN 09/23/15 Non-Formulary Medication 60 gm WKLY 09/23/15 [place]-3 Fatty Acids [Fish Oil] 1,200 mg PO BID 09/23/15 Probiotic Product [Probiotic] 1 tab PO DAILY 09/23/15 Topiramate [Topamax] 200 mg PO BID 09/23/15 Ibuprofen [Advil] 200 mg PO PRN 12/23/15 Bivigam 12/20/18 Cetirizine HCl [ZyrTEC] 10 mg PO DAILY 12/20/18 Hydroxychloroquine Sulfate [Plaquenil] 200 mg PO DAILY 12/20/18 Pantoprazole Sodium 40 mg PO DAILY 12/20/18 Perampanel [Fycompa] 2 mg PO DAILY 12/20/18 Review of Systems - Review of Systems Constitutional: States: no symptoms reported EENTM: States: no symptoms reported Respiratory: States: no symptoms reported Cardiology: States: no symptoms reported Gastrointestinal/Abdominal: States: no symptoms reported Genitourinary: States: no symptoms reported Musculoskeletal: States: see HPI Skin: States: no symptoms reported Neurological: States: no symptoms reported Endocrine: States: no symptoms reported All other Systems: No Change from Baseline Past Medical History (General) - Patient Medical History Hx Seizures: No Hx Stroke: No Hx Dementia: No Hx Asthma: Yes Hx of COPD: Yes Hx Cardiac Disorders: Yes - CA Hx Congestive Heart Failure: No Hx Pacemaker: No Hx Hypertension: Yes Hx Thyroid Disease: No Hx Diabetes: No Hx Gastroesophageal Reflux: Yes Hx Renal Disease: No Hx Cancer: No Hx of HIV: No Hx Hepatitis C: No Hx MRSA: Yes MRSA Source:: Wound - Vaccination History Hx Tetanus, Diphtheria Vaccination: Yes Hx Influenza Vaccination: Yes Hx Pneumococcal Vaccination: Yes - Social History Hx Tobacco Use: No Hx Alcohol Use: No Hx Substance Use: No Hx Substance Use Treatment: No Hx Depression: No Hx Physical Abuse: No Hx Emotional Abuse: No Hx Suspected Abuse: No - Female History Patient : No Family Medical History - Family History Mother Family History: Unknown Living Status: Still Living Hx Cardiac Disease: Yes Physical Exam - Physical Exam General Appearance: Alert, Comfortable, No apparent distress Eye Exam: bilateral normal Ears, Nose, Throat: hearing grossly normal, normal ENT inspection Neck: full range of motion, supple Respiratory: chest non-tender, lungs clear, normal breath sounds, no respiratory distress, no accessory muscle use Cardiovascular/Chest: normal peripheral pulses, regular rate, rhythm, no edema Peripheral Pulses: radial,right: 2+, radial,left: 2+, dorsalis pedis,right: 2+, dorsalis pedis,left: 2+ Gastrointestinal/Abdominal: non tender - obese, soft Rectal Exam: deferred Back Exam: normal inspection, no CVA tenderness, other - she does have tenderness over the sacrum and coccyx. No gross deformity however. Extremity: non-tender, normal inspection, no pedal edema, normal capillary refill Neurologic: cat dog or other pet groomer II-XII nml as tested, alert, normal mood/affect, oriented x 3 Skin Exam: normal color Comments: Vital Signs - 24 hr 12/20/18 21:00 Temperature 98.3 F Pulse Rate [ 77 lkeft] Respiratory 18 Rate Blood Pressure 132/80 [left] O2 Sat by Pulse 95 Oximetry Progress - Progress Progress: 12/20/18 21:58 the patient is 58-year-old female presenting after a fall on hard packed dirt. The patient appears to have likely bruised the area around her tailbone. X-ray of the lumbar spine, pelvis and sacrum and coccyx shows no evidence of any new fracture or dislocation or subluxation. Chronic changes are present. Patient needs to keep herself well-hydrated. Topical heat may prove beneficial. She may want to sit on a doughnut for the next couple of weeks. Stretching will also help to reduce pain and prevent fall risk. ER warnings were given. Keep routine follow-up with primary care doctor. She will likely be sore for a couple of weeks. Departure - Departure Clinical Impression: Fall (on) (from) other stairs and steps, initial encounter, Acute coccygeal pain Disposition: Discharge to Home or Self Care Condition: Fair Departure Forms: ED Discharge - Pt. Copy, Patient Portal Self Enrollment Instructions: DI for Trauma Diet: regular diet Activity: increase activity as tolerated Referrals: Blayne Landers III, MD [Primary Care Provider] - 1-2 Weeks Home Medications: Ambulatory Orders Amlodipine Besylate [Norvasc] 10 mg PO DAILY 01/20/13 Citalopram HBr [Celexa] 20 mg PO HS 01/20/13 Albuterol Sulfate [Proair Hfa] 108 mcg IN PRN PRN 02/07/14 Albuterol Sulfate Nebs [Proventil Nebs] 2.5 mg INH PRN PRN 09/23/15 Gabapentin 600 mg PO BID 09/23/15 Montelukast [Singulair] 10 mg PO BEDTIME 09/23/15 Nitroglycerin [Nitrostat] 0.4 mg SL PRN 09/23/15 Non-Formulary Medication 60 gm WKLY 09/23/15 [place]-3 Fatty Acids [Fish Oil] 1,200 mg PO BID 09/23/15 Probiotic Product [Probiotic] 1 tab PO DAILY 09/23/15 Topiramate [Topamax] 200 mg PO BID 09/23/15 Ibuprofen [Advil] 200 mg PO PRN 12/23/15 Bivigam 12/20/18 Cetirizine HCl [ZyrTEC] 10 mg PO DAILY 12/20/18 Hydroxychloroquine Sulfate [Plaquenil] 200 mg PO DAILY 12/20/18 Pantoprazole Sodium 40 mg PO DAILY 12/20/18 Perampanel [Fycompa] 2 mg PO DAILY 12/20/18 Additional Instructions: the patient is 58-year-old female presenting after a fall on hard packed dirt. The patient appears to have likely bruised the area around her tailbone. X-ray of the lumbar spine, pelvis and sacrum and coccyx shows no evidence of any new fracture or dislocation or subluxation. Chronic changes are present. Patient needs to keep herself well-hydrated. Topical heat may prove beneficial. She may want to sit on a doughnut for the next couple of weeks. Stretching will also help to reduce pain and prevent fall risk. ER warnings were given. Keep routine follow-up with primary care doctor. She will likely be sore for a couple of weeks.
[2018-12-20 22:43] VITALS: BP 119/66
== END 2018-12-20 22:20 | disposition home or self-care (01) ==
LOC: ER 20:56
DX: S30.810A Abrasion of lower back and pelvis, initial encounter (principal); M54.5 Low back pain; J44.9 Chronic obstructive pulmonary disease, unspecified; I25.2 Old myocardial infarction; I10 Essential (primary) hypertension; K21.9 Gastro-esophageal reflux disease without esophagitis; Z79.899 Other long term (current) drug therapy; Z88.8 Allergy status to other drugs, medicaments and biological substances; Z88.0 Allergy status to penicillin; V48.4XXA Person boarding or alighting a car injured in noncollision transport accident, initial encounter; Y92.818 Other transport vehicle as the place of occurrence of the external cause

== ENCOUNTER 2019-03-09 | Emergency (ER) | payer BC, MEDICARE | END 2019-03-09 11:06 | disposition home or self-care (01) ==

== ENCOUNTER → 2019-05-09 | Outpatient (CLI) | payer BC, MEDICARE ==
--- NOTE | 2019-05-09 15:46 | MAM ---
EXAM DESCRIPTION: 3D Screening BILATERAL : Digital Mammography. CLINICAL HISTORY: 58 years Female SCREEN . No complaints other than breast tenderness. No personal or family history of breast cancer. Remote family history of breast cancer. Childbirth. Postmenopausal 25+ years. HRT 5 or more years ago. Prior benign cyst aspiration biopsy left breast. Lifetime risk of developing breast cancer (Tyrer-Cuzick model)(%): 8.5. COMPARISON: 2-D digital screening bilateral mammography 10/13/2016. No prior reports available. TECHNIQUE: Bilateral CC and MLO projection full-field images, digital tomosynthesis mammographic technique. Bilateral digital 2-D full-field MLO images. CAD not available for tomosynthesis or 2-D images. FINDINGS: The breast parenchymal density pattern is: Scattered areas of fibroglandular density. No skin thickening or nipple retraction. Again noted is a VAD access port superimposed over the upper axillary tail of the right breast and the upper pectoral muscle. Bilateral nodular-like fibroglandular densities. Bilateral vascular calcifications. No new focal, stellate mass or density, focal asymmetry , and no suspicious microcalcifications bilaterally. Stable mammograms compared to prior study. Taking into account, differences in mammographic technique. IMPRESSION: Benign exam. BIRAD CATEGORY: 2 BENIGN FINDINGS. RECOMMENDATIONS: FOLLOW UP: Routine digital bilateral mammographic screening, one year interval from April 2019. Written communication explaining the IMPRESSION and follow-up, will be mailed to the patient and referring health care provider. According to the [employer], yearly mammograms are recommended starting at age 40 and continuing as long as a woman is in good health. Any breast change noted on a breast self-exam should be reported promptly to the patient's healthcare provider. Breast MRI is recommended for women with an approximately 20-25% or greater lifetime risk of breast cancer, including women with a strong family history of breast or ovarian cancer and women who have been treated for Hodgkin's disease. A negative mammographic report should not delay tissue diagnosis in patients with significant clinical history or physical findings. Extremely dense breast tissue limits the sensitivity of digital mammography. Electronically signed by: Omid Braden MD 05/09/2019 3:44 PM CDT
== END ==
LOC: MAMMO 05-05 10:00
PROVIDERS: ATTEND Family Medicine
DX: Z12.31 Encounter for screening mammogram for malignant neoplasm of breast (principal)

== ENCOUNTER → 2019-06-01 | Outpatient (CLI) | payer BC, MEDICARE | LOC: GMAL 10:59 | PROVIDERS: ATTEND Family Medicine | DX: E53.8 Deficiency of other specified B group vitamins (principal); I10 Essential (primary) hypertension; E78.49 Other hyperlipidemia; R53.82 Chronic fatigue, unspecified ==

== ENCOUNTER → 2019-09-19 | Outpatient (CLI) | payer BC, MEDICARE | LOC: LAB.O 13:03 | PROVIDERS: ATTEND Psychiatry & Neurology Sleep Medicine | DX: G40.89 Other seizures (principal) ==

== ENCOUNTER 2019-12-12 09:30 | Emergency (ER) | payer BC, MEDICARE ==
[2019-12-12] MEDS ORDERED: AZITHROMYCIN 250 MG TAB PO ONE (09:57)
[2019-12-12] MEDS ORDERED: DEXAMETHASONE INJ 10 MG/ML VIAL PO ONE (09:57)
[2019-12-12 09:59] VITALS: O2SAT 96
--- NOTE | 2019-12-12 09:59 | ED.PDOC ---
History of Present Illness - General Chief Complaint: Respiratory Problem Stated Complaint: sore throat, shortness of breath Time Seen by Provider: 12/12/19 09:36 - History of Present Illness Comments: 58 F +pmh presents to ED c/o worsening cough, SOB, and bodyaches. Pt states she was seen by PCP yesterday for the same symptoms, and tested positive for Influenza A and Strep. She was discharged and given single dose of Xofluza (2 tabs) and a Z-luiz. Pt reports she was unable to fill the Z-luiz due to no diagnosis code being preseent. Today she called her PCP and was instructed to come to ED for CXR and further evaluation. Today she has persistent cough with increased frequency, pleuritic CP by description, worsening bodyaches, and SOB. SOB is described as increased work of breathing and not "air hunger". Associated loose stools without diarrhea along with sore throat, fever and chills. Denies h/o recent similar sx's. She currently denies palpitations, n/v/d, abdominal pain, back pain, and/or acute changes in urination. Pt otherwise has no further signs, symptoms, or complaints. Allergies/Adverse Reactions: Allergies Butorphanol [From Stadol] Allergy (Severe, Verified 09/12/17 13:04) Cefprozil [From Cefzil] Allergy (Severe, Verified 09/12/17 13:04) Erythromycin Allergy (Severe, Verified 09/12/17 13:04) Hydromorphone [From Dilaudid] Allergy (Severe, Verified 09/12/17 13:04) Meperidine [From Demerol HCl] Allergy (Severe, Verified 09/12/17 13:04) Nalbuphine [From Nubain] Allergy (Severe, Verified 09/12/17 13:04) Penicillins Allergy (Severe, Verified 09/12/17 13:04) Zonisamide [From Zonegran] Allergy (Intermediate, Verified 09/12/17 13:04) Protective Adhesive Powder Adverse Reaction (Intermediate, Verified 09/12/17 13:04) Other Causes red rash Home Medications: Ambulatory Orders Amlodipine Besylate [Norvasc] 10 mg PO DAILY 01/20/13 Gabapentin 300 mg PO QID 09/23/15 Montelukast [Singulair] 10 mg PO BEDTIME 09/23/15 Nitroglycerin [Nitrostat] 0.4 mg SL PRN 09/23/15 Cetirizine HCl [ZyrTEC] 10 mg PO DAILY 12/20/18 Hydroxychloroquine Sulfate [Plaquenil] 200 mg PO DAILY 12/20/18 Pantoprazole Sodium 40 mg PO DAILY 12/20/18 Albuterol Sulfate [Albuterol Sulfate Hfa] 108 mcg INH 12/12/19 Azithromycin [Zithromax Z-Luiz] 250 mg PO DAILY 5 Days tab 12/12/19 Escitalopram [Lexapro] 10 mg PO DAILY 12/12/19 Ipratropium/Albuterol [Duoneb] 3 ml INH Q4HR PRN #1 12/12/19 OXcarbazepine [Trileptal] 300 mg PO BEDTIME 12/12/19 Oxcarbazepine 150 mg PO DAILY 12/12/19 Topiramate [Trokendi Xr] 200 mg PO DAILY 12/12/19 Review of Systems - Review of Systems Constitutional: States: chills, fever, other - generalized fatigue. Denies: diaphoresis EENTM: States: throat pain, other - no eye redness. Denies: eye pain Respiratory: States: cough, short of breath. Denies: wheezing Cardiology: States: chest pain. Denies: edema, palpitations Gastrointestinal/Abdominal: Denies: abdominal pain, constipation, diarrhea, nausea, vomiting Genitourinary: Denies: dysuria, frequency Musculoskeletal: States: muscle pain, other - + generalized body aches. Denies: back pain Skin: Denies: change in color, rash Neurological: Denies: headache, weakness Endocrine: Denies: unexplained weight gain Past Medical History (General) - Patient Medical History Hx Seizures: Yes Hx Stroke: No Hx Dementia: No Hx Asthma: Yes Hx of COPD: Yes Hx Cardiac Disorders: Yes - [place] Hx Congestive Heart Failure: No Hx Pacemaker: No Hx Hypertension: Yes Hx Thyroid Disease: No Hx Diabetes: No Hx Gastroesophageal Reflux: Yes Hx Renal Disease: No Hx Cancer: No Hx of HIV: No Hx Hepatitis C: No Hx MRSA: Yes MRSA Source:: Wound - Vaccination History Hx Tetanus, Diphtheria Vaccination: Yes Hx Influenza Vaccination: Yes Hx Pneumococcal Vaccination: Yes - Social History Hx Tobacco Use: No Hx Alcohol Use: No Hx Substance Use: No Hx Substance Use Treatment: No Hx Depression: No Hx Physical Abuse: No Hx Emotional Abuse: No Hx Suspected Abuse: No - Female History Patient is a Female of Child Bearing Age (10 -59 yrs old): No Patient : No Family Medical History - Family History Mother Family History: Unknown Living Status: Still Living Hx Cardiac Disease: Yes Physical Exam - Physical Exam General Appearance: Alert, Comfortable, Well Developed, Well Hydrated Eye Exam: bilateral normal, bilateral other - conjunctiva wnl, no scleral icterus ENT Exam: pharyngeal erythema, other - tonsils 2+, erythematous, + palatale petechia, no vesicles, no exudates, bilateral TM's with mild injection and trace middle ear clear effusion, no erythema, no bulging, no exudates Neck: non-tender, full range of motion, supple, normal inspection, other - no lymphadenopathy and no TTP Respiratory: no respiratory distress, no accessory muscle use, other - trace intermittent expiratory wheezing, clears with cough; good air movement throughout Cardiovascular/Chest: normal peripheral pulses, regular rate, rhythm, no edema, no JVD, other - trace systolic murmur; pt now aware Gastrointestinal/Abdominal: normal bowel sounds, non tender, soft, no pulsatile mass, other - no CVA TTP bilaterally Extremity: normal inspection, no pedal edema Neurologic: alert, normal mood/affect, oriented x 3 Skin Exam: normal color, warm/dry, other - no rash Lymphatic: no adenopathy Progress - Progress Progress: Antoine Kimo, [facility] [place] #[id number] Presents for normal symptomatology of already diagnosed influenza and strep pharyngitis. Lower clinical concern for secondary bacterial pneumonia from influenza at this time. Pt is a known COPD pt who use to be on home O2 but is n ot any longer. She has been saturating 93% or higher on pulse oximetry throughout initial encounter thus far. No clinical concern for COVID-19 at this time. Pt has not taken Azithromycin for strep pharyngitis yet due to pharmacy inability. I will perform imaging, provide appropriate pharmacotherapy, and continue to monitor/reassess. Dispo will depend on imaging results and overall course in ED; however, discharge home is expected with f/u, education, and prescriptions. 12/12/19 11:21 Rechecked pt. NAD, VSS, and remains 94-95% on room air in setting of known COPD. Remains without tachypnea or respiratory distress. I have discussed radiology results, my clinical impression, and diagnosis. I have also discussed plan for discharge home with f/u, education, and use of prescribed medications. Pt does have a nebulizer at home already. Pt and family member voice understanding, agree with plan, and all questions answered. - Results/Orders Results/Orders: EXAM DESCRIPTION: Chest,1 View CLINICAL HISTORY: influenza +, SOB COMPARISON: 12 September 2017 TECHNIQUE: AP portable chest FINDINGS: An Jptmtw-q-[id number] catheter seen in place on the right. The lungs are clear. The heart is within range of normal. IMPRESSION: An Hiabsk-u-Gmjm catheter seen in place. The chest is otherwise unremarkable. Electronically signed by: Blayne Wong MD 12/12/2019 11:11 AM CDT Departure - Departure Clinical Impression: Influenza, Strep pharyngitis, History of COPD Time of Disposition: 11:14 Disposition: Discharge to Home or Self Care Condition: Fair Departure Forms: ED Discharge - Pt. Copy, Patient Portal Self Enrollment Instructions: Chronic Obstructive Pulmonary Disease (COPD), Including Emphysema, Flu, Adult (DC), Strep Throat (DC) Diet: other - resume your normal diet Referrals: Blayne Landers III, MD [Primary Care Provider] - 1-2 Days Prescriptions: Ipratropium/Albuterol [Duoneb] 3 ml INH Q4HR PRN #1 PRN Reason: Cough or Difficulty Breathing Azithromycin [Zithromax Z-Luiz] 250 mg PO DAILY 5 Days tab Home Medications: Ambulatory Orders Amlodipine Besylate [Norvasc] 10 mg PO DAILY 01/20/13 Gabapentin 300 mg PO QID 09/23/15 Montelukast [Singulair] 10 mg PO BEDTIME 09/23/15 Nitroglycerin [Nitrostat] 0.4 mg SL PRN 09/23/15 Cetirizine HCl [ZyrTEC] 10 mg PO DAILY 12/20/18 Hydroxychloroquine Sulfate [Plaquenil] 200 mg PO DAILY 12/20/18 Pantoprazole Sodium 40 mg PO DAILY 12/20/18 Albuterol Sulfate [Albuterol Sulfate Hfa] 108 mcg INH 12/12/19 Azithromycin [Zithromax Z-Luiz] 250 mg PO DAILY 5 Days tab 12/12/19 Escitalopram [Lexapro] 10 mg PO DAILY 12/12/19 Ipratropium/Albuterol [Duoneb] 3 ml INH Q4HR PRN #1 12/12/19 OXcarbazepine [Trileptal] 300 mg PO BEDTIME 12/12/19 Oxcarbazepine 150 mg PO DAILY 12/12/19 Topiramate [Trokendi Xr] 200 mg PO DAILY 12/12/19 Comments: Antoine Malin DO [facility] [place] #[id number]
--- NOTE | 2019-12-12 11:12 | RAD ---
EXAM DESCRIPTION: Chest,1 View CLINICAL HISTORY: influenza +, SOB COMPARISON: 12 September 2017 TECHNIQUE: AP portable chest FINDINGS: An Mgonbd-k-Ippc catheter seen in place on the right. The lungs are clear. The heart is within range of normal. IMPRESSION: An Hfqhye-y-Vdfi catheter seen in place. The chest is otherwise unremarkable. Electronically signed by: Blayne Wong MD 12/12/2019 11:11 AM CDT
[2019-12-12 12:28] VITALS: BP 123/84; TEMP 98.9
== END 2019-12-12 11:32 | disposition home or self-care (01) ==
LOC: ER 09:30
DX: J02.0 Streptococcal pharyngitis (principal); J10.1 Influenza due to other identified influenza virus with other respiratory manifestations; J44.9 Chronic obstructive pulmonary disease, unspecified; K21.9 Gastro-esophageal reflux disease without esophagitis; I10 Essential (primary) hypertension; I25.2 Old myocardial infarction; R56.9 Unspecified convulsions; Z79.899 Other long term (current) drug therapy; Z88.8 Allergy status to other drugs, medicaments and biological substances; Z88.0 Allergy status to penicillin; Z88.1 Allergy status to other antibiotic agents
CPT/HCPCS: 71045; J1100; Q0144

== ENCOUNTER 2020-01-02 14:10 | Emergency (ER) | payer BC, MEDICARE ==
--- NOTE | 2020-01-02 14:29 | ED.PDOC ---
History of Present Illness - General Chief Complaint: Problem Stated Complaint: having kidney problems Time Seen by Provider: 01/02/20 14:25 Additional Information: Patient is a 59-year-old female who presents to the emergency department with a chief complaint of right flank pain. Patient indicates the pain began yesterday and is approximately 4/10 intensity. Pain is not constant but comes and goes and is a dull ache. Patient's indicates that she was seen by her PCP last week for a UTI and is presently on Levaquin 500 mg daily. Her symptoms improved until yesterday evening when the pain began. Patient denies nausea, vomiting, fever, chills. Patient indicates she has a distant history of kidney stones. Patient called her PCP today who referred patient to the ED. Has no other complaints. - History of Present Illness Allergies/Adverse Reactions: Allergies Butorphanol [From Stadol] Allergy (Severe, Verified 09/12/17 13:04) Cefprozil [From Cefzil] Allergy (Severe, Verified 09/12/17 13:04) Erythromycin Allergy (Severe, Verified 09/12/17 13:04) Hydromorphone [From Dilaudid] Allergy (Severe, Verified 09/12/17 13:04) Meperidine [From Demerol HCl] Allergy (Severe, Verified 09/12/17 13:04) Nalbuphine [From Nubain] Allergy (Severe, Verified 09/12/17 13:04) Penicillins Allergy (Severe, Verified 09/12/17 13:04) Zonisamide [From Zonegran] Allergy (Intermediate, Verified 09/12/17 13:04) Protective Adhesive Powder Adverse Reaction (Intermediate, Verified 09/12/17 13:04) Other Causes red rash Home Medications: Ambulatory Orders Amlodipine Besylate [Norvasc] 10 mg PO DAILY 01/20/13 Gabapentin 300 mg PO QID 09/23/15 Montelukast [Singulair] 10 mg PO BEDTIME 09/23/15 Nitroglycerin [Nitrostat] 0.4 mg SL PRN 09/23/15 Cetirizine HCl [ZyrTEC] 10 mg PO DAILY 12/20/18 Hydroxychloroquine Sulfate [Plaquenil] 200 mg PO DAILY 12/20/18 Pantoprazole Sodium 40 mg PO DAILY 04/02/19 Albuterol Sulfate [Albuterol Sulfate Hfa] 108 mcg INH 12/12/19 Azithromycin [Zithromax Z-Luiz] 250 mg PO DAILY 5 Days tab 12/12/19 Escitalopram [Lexapro] 10 mg PO DAILY 12/12/19 Ipratropium/Albuterol [Duoneb] 3 ml INH Q4HR PRN #1 12/12/19 OXcarbazepine [Trileptal] 300 mg PO BEDTIME 12/12/19 Oxcarbazepine 150 mg PO DAILY 12/12/19 Topiramate [Trokendi Xr] 200 mg PO DAILY 12/12/19 Review of Systems - Review of Systems Constitutional: Denies: chills, fever EENTM: States: no symptoms reported Respiratory: States: no symptoms reported. Denies: cough, short of breath Cardiology: States: no symptoms reported. Denies: chest pain Gastrointestinal/Abdominal: Denies: abdominal pain Genitourinary: States: see HPI, dysuria. Denies: hematuria Musculoskeletal: States: no symptoms reported Skin: States: no symptoms reported. Denies: rash Neurological: States: no symptoms reported All other Systems: Reviewed and Negative Past Medical History (General) - Patient Medical History Hx Seizures: Yes Hx Stroke: No Hx Dementia: No Hx Asthma: Yes Hx of COPD: Yes Hx Cardiac Disorders: Yes - [place] Hx Congestive Heart Failure: No Hx Pacemaker: No Hx Hypertension: Yes Hx Thyroid Disease: No Hx Diabetes: No Hx Gastroesophageal Reflux: Yes Hx Renal Disease: No Hx Cancer: No Hx of HIV: No Hx Hepatitis C: No Hx MRSA: Yes MRSA Source:: Wound Surgical History: appendectomy, Hysterectomy - Vaccination History Hx Tetanus, Diphtheria Vaccination: Yes Hx Influenza Vaccination: Yes Hx Pneumococcal Vaccination: Yes - Social History Hx Tobacco Use: No Hx Alcohol Use: No Hx Substance Use: No Hx Substance Use Treatment: No Hx Depression: No Hx Physical Abuse: No Hx Emotional Abuse: No Hx Suspected Abuse: No - Activities of Daily Living Hospice Agency (if applicable):: None - Female History Patient is a Female of Child Bearing Age (10 -59 yrs old): No Patient : No - Triage Comment ED Triage Comment: pt voices flank pain x1 wk that is reminding her of her past kidney stones. 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 01/02/20 15:45 Patient's UA is unremarkable and does not show evidence of infection. CT shows no obstruction but does show a mass of unknown significance for which the radiologist recommends a. contrasted CT. I have discussed this finding with patient who requests that we perform this CT now 01/02/20 16:[address] shows no evidence of concerning mass. It i otherwise unremarkable except for redemonstration of kidney stones. Patient is very comfortable at this time and feels well enough to go home. Clinically I suspect musculoskeletal discomfort versus passed ureteral stone. She will continue with her home analgesics and follow-up with her doctor as needed. Vital signs stable, patient is NAD and looks clinically well and I believe is safe for discharge with outpatient follow-up. Follow-up instructions, discharge instructions and return to ED precautions discussed with patient. Patient voices understanding and willingness to comply with instructions. All laboratory and radiographic results have been discussed with the patient, and all questions answered. Patient is happy with plan. Departure - Departure Clinical Impression: Flank pain, acute Time of Disposition: 16:57 Disposition: Discharge to Home or Self Care Condition: Good Departure Forms: ED Discharge - Pt. Copy, Patient Portal Self Enrollment Instructions: DI for Kidney Stones Referrals: Blayne Landers III, MD [Primary Care Provider] - 1 Week Home Medications: Ambulatory Orders Amlodipine Besylate [Norvasc] 10 mg PO DAILY 01/20/13 Gabapentin 300 mg PO QID 09/23/15 Montelukast [Singulair] 10 mg PO BEDTIME 09/23/15 Nitroglycerin [Nitrostat] 0.4 mg SL PRN 09/23/15 Cetirizine HCl [ZyrTEC] 10 mg PO DAILY 12/20/18 Hydroxychloroquine Sulfate [Plaquenil] 200 mg PO DAILY 12/20/18 Pantoprazole Sodium 40 mg PO DAILY 12/20/18 Albuterol Sulfate [Albuterol Sulfate Hfa] 108 mcg INH 12/12/19 Azithromycin [Zithromax Z-Luiz] 250 mg PO DAILY 5 Days tab 12/12/19 Escitalopram [Lexapro] 10 mg PO DAILY 12/12/19 Ipratropium/Albuterol [Duoneb] 3 ml INH Q4HR PRN #1 12/12/19 OXcarbazepine [Trileptal] 300 mg PO BEDTIME 12/12/19 Oxcarbazepine 150 mg PO DAILY 12/12/19 Topiramate [Trokendi Xr] 200 mg PO DAILY 12/12/19
[2020-01-02] MEDS ORDERED: KETOROLAC TROMETHAMINE INJ 30 MG/ML VIAL IV ONE (15:23)
--- NOTE | 2020-01-02 15:26 | CT ---
EXAM DESCRIPTION: Abdoment/Pelvis w/o Contrast CLINICAL HISTORY: 59 years, 59 years, Female, Female, flank pain COMPARISON: None. TECHNIQUE: CT of the abdomen and pelvis is performed according to our non contrast protocol This exam was performed according to our departmental dose-optimization program, which includes automated exposure control, adjustment of the mA and/or kV according to patient size and/or use of iterative reconstruction technique. FINDINGS: The lung bases are clear. The unenhanced liver and spleen are grossly normal in appearance. Gallbladder is normally distended without ductal dilation or visible stones. Small normal adrenal glands and fatty infiltrated pancreas are noted without cystic or solid mass or inflammation. No significant hiatal hernia noted. Left kidney demonstrates multiple small nonobstructing intrarenal calculi and slight fullness of the extrarenal pelvis but without evidence of ureterectasis or definite obstructing calculus along the course of the left ureter. No definite cystic or solid masses are noted. Mild lobulation of the cortex is noted. On the right, small nonobstructing intrarenal calculi are noted with normal caliber renal pelvis and ureter. A nonobstructing approximate 3 mm calculus at the right UVJ is identified. Right kidney appears more lobulated and cortically scarred particularly in the upper pole with a questionable soft tissue density nodule arising from the medial aspect of the upper pole. This may represent cortical lobulation but a small solid renal mass cannot be excluded. Multiphase enhanced imaging with CT examination recommended to include arterial venous and delayed imaging in comparison to this noncontrast study and to exclude the possibility of an upper pole small approximate 2.5 x 2 cm renal cell neoplasm. Small and large bowel caliber is normal. The appendix is not identified but no right lower quadrant inflammatory changes noted. Very little colonic diverticulosis noted. Within the pelvis the bladder is decompressed the uterus appears to be surgically absent. No abdominal or pelvic ascites or adnexal mass within the pelvis noted. Anterior abdominal wall appears intact. Modest degenerative change and minimal scoliosis of the spine is present. No destructive process noted. IMPRESSION: 1. Bilateral small nonobstructing intrarenal calculi and an additional 3 mm right UVJ calculus projecting along the posterior wall of the bladder with no evidence of hydroureter. 2. Mildly lobulated left kidney without focal mass and more significantly lobulated right kidney with questionable 2 x 2.5 cm upper pole soft tissue density right renal mass. Multiphase enhanced CT with arterial venous and delayed imaging to evaluate for a normal cortex versus a renal mass recommended. 3. Degenerative change and scoliosis of the spine. Electronically signed by: Oh Ty MD 01/02/2020 3:25 PM CDT
[2020-01-02 15:58] VITALS: O2SAT 95
--- NOTE | 2020-01-02 16:42 | CT ---
EXAM DESCRIPTION: Abdomen/Pelvis w/Contrast CLINICAL HISTORY: 59 years Female, abnormal plain CT TECHNIQUE: This exam was performed according to our departmental dose-optimization program, which includes automated exposure control, adjustment of the mA and/or kV according to patient size and/or use of iterative reconstruction technique. COMPARISON: Same day CT, April 18, 2015, 09/10/2011 FINDINGS: Single phase examination. Visualized lung bases are grossly unremarkable. The liver is unremarkable. No suspicious hepatic lesion. No biliary dilatation. The portal vein is patent. The gallbladder is unremarkable. The spleen, pancreas and adrenal glands are unremarkable. Similar bilateral nonobstructing nephrolithiasis. No hydronephrosis or obstructing ureteral stone. Redemonstrated layering 3 mm bladder calculus near the right UVJ. Similar right renal cortical scarring with lobulation of the normal superior renal parenchymal, dating back to September 10, 2011. No suspicious renal mass identified. Scattered colonic diverticula without focal inflammatory change. No evidence of bowel obstruction. No findings to suggest appendicitis. No adenopathy. No focal fluid collection. No free air. Normal caliber abdominal aorta. No acute or suspicious osseous abnormality. Scattered degenerative changes present. IMPRESSION: 1. Long-term stability of the chronic right renal cortical scarring and associated lobulation of the normal renal parenchyma superiorly. No suspicious renal mass identified. 2. Similar nonobstructing nephrolithiasis and layering bladder calculus near the right UVJ. Electronically signed by: Marcial Miguel MD 01/02/2020 4:40 PM CDT
[2020-01-02 17:02] VITALS: BP 133/96; TEMP 97.6
== END 2020-01-02 17:03 | disposition home or self-care (01) ==
LOC: ER 14:10
DX: R10.9 Unspecified abdominal pain (principal); N20.0 Calculus of kidney; J44.9 Chronic obstructive pulmonary disease, unspecified; I25.2 Old myocardial infarction; I10 Essential (primary) hypertension; Z87.442 Personal history of urinary calculi
CPT/HCPCS: 36415; 74176; 74177; 80048; 81001; 85025; J1885

== ENCOUNTER → 2020-01-08 | Outpatient (CLI) | payer BC, MEDICARE | LOC: GMAL 11:47 | PROVIDERS: ATTEND Family Medicine | DX: E53.9 Vitamin B deficiency, unspecified (principal); I10 Essential (primary) hypertension; E78.49 Other hyperlipidemia; E06.9 Thyroiditis, unspecified; E55.9 Vitamin D deficiency, unspecified ==

== ENCOUNTER → 2020-01-26 | Outpatient (CLI) | payer BC, MEDICARE ==
--- NOTE | 2020-01-26 09:47 | MRI ---
EXAM DESCRIPTION: Lumbar Spine w/o Contrast CLINICAL HISTORY: RADICULOPATHY LUMBAR REGION COMPARISON: May 07, 2017 TECHNIQUE: Multiplanar, multisequence MRI of the lumbar spine was performed without contrast. FINDINGS: Lumbar vertebral body heights are maintained. Normal alignment of the lumbar spine. No spondylolysis or spondylolisthesis. Conus medullaris terminates at L1 to and is unremarkable. Visualized intra-abdominal and retroperitoneal structures show no acute findings. L1-2 No significant findings. L2-3 Desiccation of the disc space without disc space narrowing. No spinal canal stenosis or foraminal encroachment. L3-4 Desiccation of the disc space and minimal loss of disc space height. No spinal canal stenosis or foraminal encroachment. L4-5 Disc desiccation without loss of disc space height. Mild left greater than right facet hypertrophic and degenerative changes are again seen. 2 mm left foraminal to far lateral disc bulging encroaches on the perineural fat of the exiting left L4 nerve root. No spinal canal stenosis. L5-S1 Disc desiccation. Linear increased T2 signal annular tear posteriorly measures 9 mm transverse similar to previous without associated herniated disc. Mild right facet hypertrophic and degenerative changes are seen contributing to mild right foraminal encroachment. IMPRESSION: Mild disc disease and facet arthropathy of the lumbar spine similar to slightly worsened compared to previous. Small central annular tear at L5-S1 is seen without spinal canal stenosis or nerve root impingement. Mild facet arthropathy is most significant left greater than right at L4-5 and on the right at L5-S1. Mild left foraminal encroachment is seen at L4-5. Electronically signed by: Paolo Riggs MD 01/26/2020 9:45 AM CDT
== END ==
LOC: MRI 08:55
PROVIDERS: ATTEND Family Medicine
DX: M54.16 Radiculopathy, lumbar region (principal); M51.36 Other intervertebral disc degeneration, lumbar region; M51.37 Other intervertebral disc degeneration, lumbosacral region; M12.9 Arthropathy, unspecified

== ENCOUNTER 2020-03-25 02:05 | Emergency (ER) | payer BC, MEDICARE ==
[2020-03-25] MEDS ORDERED: SODIUM CHLORIDE 0.9% 1000ML 1,000 ML IVS ONE (02:28)
[2020-03-25] MEDS ORDERED: KETOROLAC TROMETHAMINE INJ 30 MG/ML VIAL IM ONE (02:28)
[2020-03-25] MEDS ORDERED: TAMSULOSIN 0.4 MG CAP PO ONE (02:29)
[2020-03-25] MEDS ORDERED: ONDANSETRON INJ 4 MG/2 ML VIAL IV ONE (02:39)
[2020-03-25] MEDS ORDERED: ONDANSETRON INJ 4 MG/2 ML VIAL ONE (02:40)
--- NOTE | 2020-03-25 03:04 | CT ---
EXAM: CT Abdomen and Pelvis Without Intravenous Contrast CLINICAL HISTORY: The patient is 59 years old and is Female; left flank pain, hx of stones TECHNIQUE: Axial computed tomography images of the abdomen and pelvis without intravenous contrast. Sagittal and coronal reformatted images were created and reviewed. This CT exam was performed using one or more of the following dose reduction techniques: automated exposure control, adjustment of the mA and/or kV according to patient size, and/or use of iterative reconstruction technique. COMPARISON: CT of the abdomen and pelvis January 02, 2020 FINDINGS: LUNG BASES: Unremarkable. No mass. No consolidation. ABDOMEN: LIVER: Homogeneous without focal mass. GALLBLADDER AND BILE DUCTS: No calcified stones. No ductal dilation. PANCREAS: Fatty infiltration of the pancreas is present. No ductal dilation. SPLEEN: Unremarkable. ADRENALS: Unremarkable. No mass. KIDNEYS AND URETERS: Mild/moderate left hydronephrosis is present secondary to a 0.6 cm left UPJ calculus. Bilateral intrarenal calcifications are present. STOMACH AND BOWEL: The stomach is decompressed. The small bowel is normal in caliber. Stool is present throughout the colon. There is no mucosal thickening or evidence of bowel obstruction. PELVIS: APPENDIX: No findings to suggest acute appendicitis. BLADDER: The bladder is nearly empty. No stones. REPRODUCTIVE: The patient is status post hysterectomy. ABDOMEN and PELVIS: INTRAPERITONEAL SPACE: Unremarkable. No free air. No significant fluid collection. BONES/JOINTS: No acute fracture. SOFT TISSUES: The soft tissues are normal. VASCULATURE: Unremarkable. No abdominal aortic aneurysm. LYMPH NODES: Unremarkable. No enlarged lymph nodes. IMPRESSION: 1. Mild/moderate left hydronephrosis is present secondary to a 0.6 cm left UPJ calculus. 2. Bilateral nephrolithiasis Electronically signed by: Naila Watson MD 03/25/2020 3:03 AM CDT
[2020-03-25] MEDS ORDERED: PROMETHAZINE HCL INJ 25 MG in SODIUM CHLORIDE 0.9% 50ML 50 ML IVPB ONE (03:21)
[2020-03-25] MEDS ORDERED: PROMETHAZINE HCL INJ 25 MG/ML VIAL ONE (03:22)
[2020-03-25] MEDS ORDERED: SODIUM CHL 0.9% 50ML MIN-BAG+ 50 ML IVPB ONE (03:22)
[2020-03-25] MEDS ORDERED: fentaNYL CITRATE INJ 50 MCG/ML AMP IV ONE (03:29)
[2020-03-25] MEDS ORDERED: fentaNYL CITRATE INJ 50 MCG/ML AMP ONE (03:30)
[2020-03-25] MEDS ORDERED: KCL 40MEQ/NS 1,000 ML IVS ONE (03:37)
--- NOTE | 2020-03-25 03:41 | ED.PDOC ---
History of Present Illness - General Chief Complaint: Problem Stated Complaint: left flank pain, nausea, hx kidney stones Time Seen by Provider: 03/25/20 02:22 Source: patient Exam Limitations: no limitations - History of Present Illness Initial Comments: the patient is a 59-year-old female presented emergency room secondary to severe acute left flank pain associated with nausea and vomiting and diaphoresis starting about an hour prior to arrival. The patient is fairly certain this is from a kidney stone that she has had them in the past. She does have known stones bilaterally and sees Dr. De Jesus, urology. No fever. She denies any prior symptoms recently. No dysuria. She has had a small amount of frequency. Timing/Duration: 1-3 hours Severity: severe Improving Factors: medication Worsening Factors: nothing Associated Symptoms: nausea/vomiting Allergies/Adverse Reactions: Allergies Butorphanol [From Stadol] Allergy (Severe, Verified 03/25/20 02:22) Cefprozil [From Cefzil] Allergy (Severe, Verified 03/25/20 02:22) Erythromycin Allergy (Severe, Verified 03/25/20 02:22) Hydromorphone [From Dilaudid] Allergy (Severe, Verified 03/25/20 02:22) Meperidine [From Demerol HCl] Allergy (Severe, Verified 03/25/20 02:22) Nalbuphine [From Nubain] Allergy (Severe, Verified 03/25/20 02:22) Penicillins Allergy (Severe, Verified 03/25/20 02:22) Zonisamide [From Zonegran] Allergy (Intermediate, Verified 09/12/17 13:04) Phenytoin [From Dilantin] Allergy (Verified 03/25/20 02:22) Protective Adhesive Powder Adverse Reaction (Intermediate, Verified 09/12/17 13:04) Other Causes red rash Home Medications: Ambulatory Orders Amlodipine Besylate [Norvasc] 10 mg PO QAM 01/20/13 Gabapentin 600 mg PO BID 09/23/15 Montelukast [Singulair] 10 mg PO BEDTIME 09/23/15 Nitroglycerin [Nitrostat] 0.4 mg SL PRN 09/23/15 Cetirizine HCl [ZyrTEC] 10 mg PO BEDTIME 12/20/18 Hydroxychloroquine Sulfate [Plaquenil] 200 mg PO BID 12/20/18 Pantoprazole Sodium 40 mg PO DAILY 12/20/18 Escitalopram [Lexapro] 10 mg PO BEDTIME 12/12/19 Ipratropium/Albuterol [Duoneb] 3 ml INH Q4HR PRN #1 12/12/19 OXcarbazepine [Trileptal] 375 mg PO BEDTIME 12/12/19 Zcjgkafxrhkfr-Gjvp-Yrczgkfmtv [Fioricet] 1 ea PO Q8H PRN #30 tab 03/25/20 Wnborwcxicqmn-Qyam-Mbqbtromri [Fioricet] 1 tab PO PRN 03/25/20 Albuterol Sulfate [Proair Hfa] 2 puff INH Q6H PRN 03/25/20 B12 Injection 1,000 units IM MONTHLY 03/25/20 Cholecalciferol [Vitamin D] 5,000 unit PO WKLY 03/25/20 Cyanocobalamin [B12] 1,000 mcg PO DAILY 03/25/20 Ondansetron Odt [Zofran ODT] 4 mg PO Q8HR PRN #5 tab 03/25/20 Oxcarbazepine [Trileptal] 75 mg PO QAM 03/25/20 Potassium 99 mg PO DAILY 03/25/20 Probiotic Product [Probiotic] 1 tab PO DAILY 03/25/20 Promethazine HCl 25 mg PO Q6H PRN #10 tab 03/25/20 Rosuvastatin Calcium [Crestor] 5 mg PO .QMONDAY/QFRIDAY 03/25/20 Sucralfate Tab [Carafate Tab] 1 gm PO Q4HR PRN 03/25/20 Tamsulosin HCl [Flomax] 0.4 mg PO DAILY #7 cap 03/25/20 Topiramate [Trokendi Xr] 200 mg PO DAILY 03/25/20 Triamcinolone Acetonide (Nasal [Nasacort Allergy 24Hr] 55 mcg NA BID 03/25/20 Review of Systems - Review of Systems Constitutional: States: no symptoms reported EENTM: States: no symptoms reported Respiratory: States: no symptoms reported Cardiology: States: no symptoms reported Gastrointestinal/Abdominal: States: abdominal pain, nausea, vomiting Genitourinary: States: frequency Musculoskeletal: States: back pain - Left-sided flank pain Skin: States: no symptoms reported Neurological: States: no symptoms reported Endocrine: States: excessive sweating All other Systems: No Change from Baseline Past Medical History (General) - Patient Medical History Hx Seizures: Yes Hx Stroke: No Hx Dementia: No Hx Asthma: Yes Hx of COPD: Yes Hx Cardiac Disorders: Yes - [place] Hx Congestive Heart Failure: No Hx Pacemaker: No Hx Hypertension: Yes Hx Thyroid Disease: No Hx Diabetes: No Hx Gastroesophageal Reflux: Yes Hx Renal Disease: No Hx Cancer: No Hx of HIV: No Hx Hepatitis C: No Hx MRSA: Yes MRSA Source:: Wound Surgical History: appendectomy, Hysterectomy - Vaccination History Hx Tetanus, Diphtheria Vaccination: Yes - 2-3 years ago Hx Influenza Vaccination: Yes Hx Pneumococcal Vaccination: Yes - Social History Hx Tobacco Use: No Hx Alcohol Use: No Hx Substance Use: No Hx Substance Use Treatment: No Hx Depression: No Hx Physical Abuse: No Hx Emotional Abuse: No Hx Suspected Abuse: No - Female History Patient : No Family Medical History - Family History Mother Family History: Unknown Living Status: Still Living Hx Cardiac Disease: Yes Physical Exam - Physical Exam General Appearance: Alert, Obvious distress, Ill Appearing, Restless Eye Exam: bilateral normal Ears, Nose, Throat: hearing grossly normal, normal pharynx Neck: non-tender, supple Respiratory: lungs clear, normal breath sounds, no respiratory distress, no accessory muscle use Cardiovascular/Chest: normal peripheral pulses, regular rate, rhythm, no edema Peripheral Pulses: radial,right: 2+, radial,left: 2+ Gastrointestinal/Abdominal: non tender - Obese, soft Rectal Exam: deferred Back Exam: no vertebral tenderness, CVA tenderness (L) Extremity: non-tender, normal inspection, no pedal edema, normal capillary refill Neurologic: solution professional II-XII nml as tested, alert, normal mood/affect, oriented x 3 Skin Exam: normal color Comments: Vital Signs - 24 hr 03/25/20 03/25/20 02:10 03:00 Temperature 97.7 F Pulse Rate [ 81 89 monitor] Respiratory 18 18 Rate Blood Pressure 176/97 161/99 [Left Arm] O2 Sat by Pulse 95 96 Oximetry Progress - Progress Progress: 03/25/20 03:42 The patient is a 59-year-old female presented emergency room secondary to left flank pain from what appears to be a 0.6 cm stone at the left ureteropelvic junction with some associated hydronephrosis. The patient is having severe pain and associated nausea and vomiting. She is receiving Zofran, Phenergan, Toradol and fentanyl as per her allergy list. She is also receiving normal saline, a dose of Flomax and supplemental potassium based on her laboratory draw. If the patient is not significantly improving by morning, given her history of having to have instrumentation to have stones removed, her urologist Dr. De Jesus will likely be contacted for further instruction and intervention as he deems necessary. Following for now. 03/25/20 05:51 The patient does appear to be doing significantly better at this point. The fentanyl has worn off and her pain is minimal. No evidence of infection on the urinalysis. Vital signs are stable. The patient will be written for Zofran, Phenergan and Fioricet to use as pain control. She can additionally take some anti-inflammatories. I would encourage her to contact Dr. De Jesus's office this am and let them know what is going on. The patient has agreed to this. Obviously she will still have some twinges of pain for the next few days and that the stone is already completely passed. ER warnings are given. She will also be written for short course of Flomax. ale twyla [id number] - Results/Orders Results/Orders: Laboratory Tests 03/25/20 03/25/20 03/25/20 02:25 02:25 02:25 WBC 7.0 RBC 4.85 Hgb 13.7 Hct 41.4 MCV 85.4 MCH 28.3 MCHC 33.1 RDW 15.0 H Plt Count 178 MPV 9.6 Absolute Neuts (auto) 3.60 Absolute Lymphs (auto) 2.50 Absolute Monos (auto) 0.60 Absolute Eos (auto) 0.30 Absolute Basos (auto) 0.00 Neutrophils % 51.3 Lymphocytes % 35.9 Monocytes % 8.0 Eosinophils % 4.1 Basophils % 0.7 Sodium 145 Potassium 3.1 L Chloride 109 Carbon Dioxide 29 Anion Gap 10.1 L BUN 21 H Creatinine 1.01 BUN/Creatinine Ratio 20.8 H Random Glucose 89 Serum Osmolality 291.1 Calcium 9.4 Magnesium 2.1 Total Bilirubin 0.3 AST 20 ALT 17 Alkaline Phosphatase 100 Serum Total Protein 8.0 Albumin 3.9 Globulin 4.1 H Albumin/Globulin Ratio 1.0 L Amylase 117 H Lipase 151 H Urine Color Urine Appearance Urine pH Ur Specific [place] Urine Protein Urine Glucose (UA) Urine Ketones Urine Blood Urine Nitrite Urine Bilirubin Urine Urobilinogen Ur Leukocyte Esterase Urine RBC Urine WBC Ur Epithelial Cells Urine Bacteria 03/25/20 02:30 WBC RBC Hgb Hct MCV MCH MCHC RDW Plt Count MPV Absolute Neuts (auto) Absolute Lymphs (auto) Absolute Monos (auto) Absolute Eos (auto) Absolute Basos (auto) Neutrophils % Lymphocytes % Monocytes % Eosinophils % Basophils % Sodium Potassium Chloride Carbon Dioxide Anion Gap BUN Creatinine BUN/Creatinine Ratio Random Glucose Serum Osmolality Calcium Magnesium Total Bilirubin AST ALT Alkaline Phosphatase Serum Total Protein Albumin Globulin Albumin/Globulin Ratio Amylase Lipase Urine Color Yellow Urine Appearance Sl cloudy Urine pH 7.0 Ur Specific [place] 1.020 Urine Protein Trace Urine Glucose (UA) Negative Urine Ketones Negative Urine Blood Moderate H Urine Nitrite Negative Urine Bilirubin Negative Urine Urobilinogen 0.2 Ur Leukocyte Esterase Small H Urine RBC 10-20 H Urine WBC 3-5 H Ur Epithelial Cells 10-[address] scan of abdomen pelvis without contrast shows a fatty liver as well as a 0.6 cm stone at the left ureteropelvic junction with moderate hydronephrosis. Departure - Departure Clinical Impression: Calcium ureterolithiasis Disposition: Discharge to Home or Self Care Condition: Fair Departure Forms: ED Discharge - Pt. Copy, Patient Portal Self Enrollment Instructions: Kidney Stones in Adults Diet: regular diet Activity: increase activity as tolerated Referrals: Blayne Landers III, MD [Primary Care Provider] - 1-2 Weeks Prescriptions: Ondansetron Odt [Zofran ODT] 4 mg PO Q8HR PRN #5 tab PRN Reason: Nausea--Moderate Gvwtbodqnjeyv-Xdor-Udljxamzem [Fioricet] 1 ea PO Q8H PRN #30 tab PRN Reason: Pain Promethazine HCl 25 mg PO Q6H PRN #10 tab PRN Reason: Vomiting Tamsulosin HCl [Flomax] 0.4 mg PO DAILY #7 cap Home Medications: Ambulatory Orders Amlodipine Besylate [Norvasc] 10 mg PO QAM 01/20/13 Gabapentin 600 mg PO BID 09/23/15 Montelukast [Singulair] 10 mg PO BEDTIME 09/23/15 Nitroglycerin [Nitrostat] 0.4 mg SL PRN 09/23/15 Cetirizine HCl [ZyrTEC] 10 mg PO BEDTIME 12/20/18 Hydroxychloroquine Sulfate [Plaquenil] 200 mg PO BID 12/20/18 Pantoprazole Sodium 40 mg PO DAILY 12/20/18 Escitalopram [Lexapro] 10 mg PO BEDTIME 12/12/19 Ipratropium/Albuterol [Duoneb] 3 ml INH Q4HR PRN #1 12/12/19 OXcarbazepine [Trileptal] 375 mg PO BEDTIME 12/12/19 Ityjkqrnfzqsf-Nfyy-Zqlxnqqiyh [Fioricet] 1 ea PO Q8H PRN #30 tab 03/25/20 Bhpdmkhkizgly-Dzoj-Fqchzxqzlj [Fioricet] 1 tab PO PRN 03/25/20 Albuterol Sulfate [Proair Hfa] 2 puff INH Q6H PRN 03/25/20 B12 Injection 1,000 units IM MONTHLY 03/25/20 Cholecalciferol [Vitamin D] 5,000 unit PO WKLY 03/25/20 Cyanocobalamin [B12] 1,000 mcg PO DAILY 03/25/20 Ondansetron Odt [Zofran ODT] 4 mg PO Q8HR PRN #5 tab 03/25/20 Oxcarbazepine [Trileptal] 75 mg PO QAM 03/25/20 Potassium 99 mg PO DAILY 03/25/20 Probiotic Product [Probiotic] 1 tab PO DAILY 03/25/20 Promethazine HCl 25 mg PO Q6H PRN #10 tab 03/25/20 Rosuvastatin Calcium [Crestor] 5 mg PO .QMONDAY/QFRIDAY 03/25/20 Sucralfate Tab [Carafate Tab] 1 gm PO Q4HR PRN 03/25/20 Tamsulosin HCl [Flomax] 0.4 mg PO DAILY #7 cap 03/25/20 Topiramate [Trokendi Xr] 200 mg PO DAILY 03/25/20 Triamcinolone Acetonide (Nasal [Nasacort Allergy 24Hr] 55 mcg NA BID 03/25/20 Additional Instructions: The patient is a 59-year-old female presented emergency room secondary to severe abdominal pain and vomiting related to a left-sided [address] scan obtained shows it at the left ureteropelvic junction when the scan was done. There was mild to moderate hydronephrosis. The patient responded well to nausea and pain medications. She also received IV fluids and a dose of Flomax. The patient is doing significantly better at this time. It is likely she is passing the stone. The patient is going to be written for Zofran and Phenergan for as needed use to control any nausea or vomiting in the future with this or other stones, and she will be written for Fioricet for pain control. A dditionally she will be written for 1 week of Flomax. The patient does need to contact her urologist office today and let them know what is going on. The patient is going to be sent home with a disc of her imaging that she can take to her urologist's next appointment for their evaluation. No evidence of infection at this time. ER warnings are given. Keep routine follow-up with primary care doctor otherwise. ale wakefiled [id number]
[2020-03-25 06:46] VITALS: O2SAT 95
[2020-03-25 06:49] VITALS: BP 121/86; TEMP 97.4
== END 2020-03-25 06:43 | disposition home or self-care (01) ==
LOC: ER 02:05
DX: N13.2 Hydronephrosis with renal and ureteral calculous obstruction (principal); K21.9 Gastro-esophageal reflux disease without esophagitis; R10.9 Unspecified abdominal pain; I10 Essential (primary) hypertension; J44.9 Chronic obstructive pulmonary disease, unspecified; I25.2 Old myocardial infarction; R11.2 Nausea with vomiting, unspecified
CPT/HCPCS: 74176; 80053; 81001; 82150; 83690; 83735; 85025; 87086; J1885; J2405; J2550; J3010; J3480; J7030; J7050

== ENCOUNTER → 2020-04-02 | Outpatient (CLI) | payer BC, MEDICARE ==
--- NOTE | 2020-04-02 15:28 | RAD ---
EXAM DESCRIPTION: Chest,2 Views CLINICAL HISTORY: z01.811 COMPARISON: Chest radiograph dated December 12, 2019 TECHNIQUE: Two-view radiograph of the chest FINDINGS: Redemonstrated right-sided Dgpusw-e-Outd with distal tip over the distal SVC. Cardiac silhouette shows normal heart size. Pulmonary vascularity is within normal limits. Subtle linear opacities in the bilateral lung bases most compatible with atelectasis. Otherwise, lungs show no confluent infiltrates. No pleural effusion. No pneumothorax. No acute osseous abnormality. IMPRESSION: Minimal bibasilar atelectasis. Otherwise, lungs show no confluent infiltrates. Electronically signed by: Blayne Jones MD 04/02/2020 3:16 PM CDT
== END ==
LOC: LAB.O 12:25
PROVIDERS: ATTEND Urology
DX: Z01.818 Encounter for other preprocedural examination (principal); N20.1 Calculus of ureter; J98.11 Atelectasis

== ENCOUNTER 2020-04-26 16:29 | Emergency (ER) | payer BC, MEDICARE ==
[2020-04-26] MEDS ORDERED: ONDANSETRON INJ 4 MG/2 ML VIAL IV ONE (16:43)
[2020-04-26] MEDS ORDERED: SODIUM CHLORIDE 0.9% (FLUSH) 10 ML SYG IV PRN (16:43)
[2020-04-26] MEDS ORDERED: KETOROLAC TROMETHAMINE INJ 30 MG/ML VIAL IV ONE (16:43)
[2020-04-26] MEDS ORDERED: MORPHINE SULFATE INJ 10 MG/ML VIAL IV ONE (16:43)
--- NOTE | 2020-04-26 18:21 | CT ---
EXAM: CT Abdomen and Pelvis With Intravenous Contrast CLINICAL HISTORY: The patient is 59 years old and is Female; Right flank pain, history of kidney stones TECHNIQUE: Axial computed tomography images of the abdomen and pelvis with intravenous contrast. Sagittal and coronal reformatted images were created and reviewed. This CT exam was performed using one or more of the following dose reduction techniques: automated exposure control, adjustment of the mA and/or kV according to patient size, and/or use of iterative reconstruction technique. COMPARISON: March 25, 2020 FINDINGS: Lung bases: Unremarkable. No mass. No consolidation. ABDOMEN: Liver: Unremarkable. No mass. Gallbladder and bile ducts: Unremarkable. No calcified stones. No ductal dilation. Pancreas: Unremarkable. No mass. No ductal dilation. Spleen: Unremarkable. No splenomegaly. Adrenals: Unremarkable. No mass. Kidneys and ureters: Punctate calculus right renal midportion. Left renal lower pole 4 mm calculus. No hydronephrosis. No ureteral calculus. Renal subcentimeter hypodensities, likely cysts. Stomach and bowel: Unremarkable. No obstruction. No mucosal thickening. PELVIS: Appendix: No findings to suggest acute appendicitis. Bladder: Unremarkable. No mass. Reproductive: Unremarkable as visualized. ABDOMEN and PELVIS: Intraperitoneal space: Unremarkable. No free air. No significant fluid collection. Bones/joints: No acute fracture. No dislocation. Soft tissues: Unremarkable. Vasculature: Unremarkable. No abdominal aortic aneurysm. Lymph nodes: Unremarkable. No enlarged lymph nodes. IMPRESSION: 1. No acute intra-abdominal abnormality. 2. Bilateral nonobstructive nephrolithiasis. Electronically signed by: Obed Esteves MD 04/26/2020 6:20 PM CDT
--- NOTE | 2020-04-26 18:35 | ED.PDOC ---
History of Present Illness - General Chief Complaint: Problem Stated Complaint: R flank pain and difficulty urinating Time Seen by Provider: 04/26/20 16:34 Source: patient, RN notes reviewed, Vital Signs reviewed Exam Limitations: no limitations - History of Present Illness Initial Comments: This is a 59-year-old female presenting to the emergency department with right flank pain that began earlier today. She has a history of renal stones and was seen in the emergency department last month for right flank pain. Her CT at that time showed no acute process. She reportedly had a procedure performed at a urologist office in [place] early this week to evaluate for possible stricture versus missed ureteral stone, no stone was noted. She denies any blood in her urine. No fever. She does self cath due to history of neurogenic bladder. No vomiting or diarrhea. She denies any cough, chest pain, shortness of breath. No known COVID contacts Allergies/Adverse Reactions: Allergies Butorphanol [From Stadol] Allergy (Severe, Verified 04/26/20 17:20) Cefprozil [From Cefzil] Allergy (Severe, Verified 04/26/20 17:20) Erythromycin Allergy (Severe, Verified 04/26/20 17:20) Hydromorphone [From Dilaudid] Allergy (Severe, Verified 04/26/20 17:20) Meperidine [From Demerol HCl] Allergy (Severe, Verified 04/26/20 17:20) Nalbuphine [From Nubain] Allergy (Severe, Verified 04/26/20 17:20) Penicillins Allergy (Severe, Verified 04/26/20 17:20) Zonisamide [From Zonegran] Allergy (Intermediate, Verified 04/26/20 17:20) Phenytoin [From Dilantin] Allergy (Verified 04/26/20 17:20) Protective Adhesive Powder Adverse Reaction (Intermediate, Verified 04/26/20 17:20) Other Causes red rash Home Medications: Ambulatory Orders Amlodipine Besylate [Norvasc] 10 mg PO QAM 01/20/13 Gabapentin 600 mg PO BID 09/23/15 Montelukast [Singulair] 10 mg PO BEDTIME 09/23/15 Nitroglycerin [Nitrostat] 0.4 mg SL PRN 09/23/15 Cetirizine HCl [ZyrTEC] 10 mg PO BEDTIME 12/20/18 Hydroxychloroquine Sulfate [Plaquenil] 200 mg PO BID 12/20/18 Pantoprazole Sodium 40 mg PO BEDTIME 12/20/18 Escitalopram [Lexapro] 10 mg PO BEDTIME 12/12/19 Albuterol Sulfate [Proair Hfa] 2 puff INH Q6H PRN 03/25/20 B12 Injection 1,000 units IM MONTHLY 03/25/20 Cyanocobalamin [B12] 1,000 mcg PO DAILY 03/25/20 Ondansetron Odt [Zofran ODT] 4 mg PO Q8HR PRN #5 tab 03/25/20 Potassium 99 mg PO BID 03/25/20 Promethazine HCl 25 mg PO Q6H PRN #10 tab 03/25/20 Rosuvastatin Calcium [Crestor] 5 mg PO MOWEFR 03/25/20 Acetaminophen W/ Codeine [Tylenol W/ CODEINE #3] 1 tab PO PRN 04/26/20 Aspirin [Aspirin EC Low Dose] 81 mg PO DAILY 04/26/20 Butalbital-Acetaminophen [Butalbital/Acetaminophen 50-325 mg] 1 tab PO PRN 04/26/20 Cephalexin 500 mg PO BEDTIME 04/26/20 Gabapentin 300 mg PO .NOON 04/26/20 Ivig 30 Gms 30 gm WKLY 04/26/20 Oxcarbazepine [Trileptal] 150 mg PO DAILY 04/26/20 Oxcarbazepine [Trileptal] 450 mg PO BEDTIME 04/26/20 Triamcinolone Acetonide (Nasal [Nasacort Allergy 24Hr] 2 inh NA BID 04/26/20 Review of Systems - Review of Systems Constitutional: Denies: chills, fever EENTM: Denies: nose pain, nose congestion, throat pain Respiratory: Denies: cough, orthopnea, stridor Cardiology: Denies: chest pain, edema, palpitations Gastrointestinal/Abdominal: States: nausea. Denies: abdominal pain, diarrhea, vomiting Genitourinary: Denies: discharge, dysuria, frequency, hematuria Musculoskeletal: Denies: back pain, muscle pain, neck pain Skin: Denies: lesions, rash Neurological: Denies: headache, paresthesia Endocrine: States: no symptoms reported Hematologic/Lymphatic: States: no symptoms reported Past Medical History (General) - Patient Medical History Hx Seizures: Yes Hx Stroke: No Hx Dementia: No Hx Asthma: Yes Hx of COPD: Yes Hx Cardiac Disorders: Yes Hx Congestive Heart Failure: No Hx Pacemaker: No Hx Hypertension: Yes Hx Thyroid Disease: No Hx Diabetes: No Hx Gastroesophageal Reflux: Yes Hx Renal Disease: No Hx Cancer: No Hx of HIV: No Hx Hepatitis C: No Hx MRSA: Yes MRSA Source:: Wound Surgical History: Hysterectomy, other - Vaccination History Hx Tetanus, Diphtheria Vaccination: Yes - 2-3 years ago Hx Influenza Vaccination: Yes Hx Pneumococcal Vaccination: Yes - Social History Hx Tobacco Use: No Hx Alcohol Use: No Hx Substance Use: No Hx Substance Use Treatment: No Hx Depression: No Hx Physical Abuse: No Hx Emotional Abuse: No Hx Suspected Abuse: No - Female History Patient is a Female of Child Bearing Age (10 -59 yrs old): No Patient : No Family Medical History - Family History Mother Family History: Unknown Living Status: Still Living Hx Cardiac Disease: Yes Physical Exam - Physical Exam Ears, Nose, Throat: normal ENT inspection, normal pharynx Neck: non-tender, full range of motion Respiratory: chest non-tender, lungs clear, normal breath sounds, no respiratory distress Cardiovascular/Chest: normal peripheral pulses, regular rate, rhythm, no edema Gastrointestinal/Abdominal: normal bowel sounds, tenderness Back Exam: no vertebral tenderness, CVA tenderness (R) Extremity: normal range of motion, non-tender, normal inspection Neurologic: alert, normal mood/affect, oriented x 3 Skin Exam: normal color, warm/dry Progress - Progress Progress: 04/26/20 19:[address] Roberts, urology station installer and repairer for Dr. De Jesus. Patient had a retrograde cystoureterogram and bladder biopsy last week. I reviewed labs, vital signs, CT report with him. He is in agreement with plan for discharge home and follow-up with Dr. De Jesus next week. 04/26/20 19:22 Rechecked. Pain remains improved. Discussed lab, UA, CT results with patient. She has Tylenol 3 at home for pain, which she has not taken today. I recommended she take that as needed for pain and to follow-up with Dr. De Jesus next week for recheck. Strict warnings given to return the emergency room for worsening pain, increased blood in urine, fever, intractable vomiting, or other concerns. DDX: Kidney stone, pyelonephritis, gallbladder disease, bowel obstruction MDM: Recurrent right flank pain, etiology is unclear. Possibly musculoskeletal. CT abdomen/pelvis shows no acute process, no hydro-, no complications from recent procedure. UA is essentially clear, urine culture is pending. She is currently on Keflex, which I recommended she finish. She has pain medication at home. She is well-appearing, vital signs acceptable, pain markedly improved. Recommended follow-up with PCP and with urology next week, strict return warnings given. Michael Godinez DO [id number] 04/27/20 01:16 - Results/Orders Results/Orders: 04/26/20 16:43 Sodium Chloride 0.9% (Flush) [Saline Flush Syringe] 10 ml IV PRN PRN 04/26/20 16:44 Hold Metformin x 48Hrs [id number] 04/26/20 19:12 Urine Culture Stat Laboratory Results - last 24 hr 04/26/20 04/26/20 04/26/20 17:02 17:02 18:54 WBC 7.7 RBC 4.42 Hgb 12.7 Hct 38.0 MCV 85.9 MCH 28.8 MCHC 33.5 RDW 14.7 H Plt Count 171 MPV 9.4 Absolute Neuts (auto) 4.00 Absolute Lymphs (auto) 2.50 Absolute Monos (auto) 0.80 Absolute Eos (auto) 0.40 Absolute Basos (auto) 0.10 Neutrophils % 52.2 Lymphocytes % 32.0 Monocytes % 9.9 H Eosinophils % 5.2 H Basophils % 0.7 Sodium 140 Potassium 3.3 L Chloride 103 Carbon Dioxide 28 Anion Gap 12.3 BUN 20 H Creatinine 1.16 BUN/Creatinine Ratio 17.2 Random Glucose 111 H Serum Osmolality 282.7 Calcium 8.5 Total Bilirubin 0.5 AST 24 ALT 17 Alkaline Phosphatase 90 Serum Total Protein 7.2 Albumin 3.8 Globulin 3.4 Albumin/Globulin Ratio 1.1 Lipase 45 Urine Color Yellow Urine Appearance Clear Urine pH 5.0 Ur Specific [place] 1.010 Urine Protein Negative Urine Glucose (UA) Negative Urine Ketones Negative Urine Blood Small H Urine Nitrite Negative Urine Bilirubin Negative Urine Urobilinogen 0.2 Ur Leukocyte Esterase Negative Urine RBC 3-5 H Urine WBC 1-3 Ur Epithelial Cells 5-10 Urine Bacteria 0 EXAM: CT Abdomen and Pelvis With Intravenous Contrast CLINICAL HISTORY: The patient is 59 years old and is Female; Right flank pain, history of kidney stones TECHNIQUE: Axial computed tomography images of the abdomen and pelvis with intravenous contrast. Sagittal and coronal reformatted images were created and reviewed. This CT exam was performed using one or more of the following dose reduction techniques: automated exposure control, adjustment of the mA and/or kV according to patient size, and/or use of iterative reconstruction technique. COMPARISON: March 25, 2020 FINDINGS: Lung bases: Unremarkable. No mass. No consolidation. ABDOMEN: Liver: Unremarkable. No mass. Gallbladder and bile ducts: Unremarkable. No calcified stones. No ductal dilation. Pancreas: Unremarkable. No mass. No ductal dilation. Spleen: Unremarkable. No splenomegaly. Adrenals: Unremarkable. No mass. Kidneys and ureters: Punctate calculus right renal midportion. Left renal lower pole 4 mm calculus. No hydronephrosis. No ureteral calculus. Renal subcentimeter hypodensities, likely cysts. Stomach and bowel: Unremarkable. No obstruction. No mucosal thickening. PELVIS: Appendix: No findings to suggest acute appendicitis. Bladder: Unremarkable. No mass. Reproductive: Unremarkable as visualized. ABDOMEN and PELVIS: Intraperitoneal space: Unremarkable. No free air. No significant fluid collection. Bones/joints: No acute fracture. No dislocation. Soft tissues: Unremarkable. Vasculature: Unremarkable. No abdominal aortic aneurysm. Lymph nodes: Unremarkable. No enlarged lymph nodes. IMPRESSION: 1. No acute intra-abdominal abnormality. 2. Bilateral nonobstructive nephrolithiasis. Electronically signed by: Obed Esteves MD 04/26/2020 6:20 PM CDT Departure - Departure Clinical Impression: Acute right flank pain Disposition: Discharge to Home or Self Care Condition: Good Departure Forms: ED Discharge - Pt. Copy, Patient Portal Self Enrollment Diet: resume usual diet Activity: increase activity as tolerated Referrals: Blayne Landers III, MD [Primary Care Provider] - 1-5 Days GARY DE JESUS MD [Consulting Staff] - 1-5 Days Home Medications: Ambulatory Orders Amlodipine Besylate [Norvasc] 10 mg PO QAM 01/20/13 Gabapentin 600 mg PO BID 09/23/15 Montelukast [Singulair] 10 mg PO BEDTIME 09/23/15 Nitroglycerin [Nitrostat] 0.4 mg SL PRN 09/23/15 Cetirizine HCl [ZyrTEC] 10 mg PO BEDTIME 12/20/18 Hydroxychloroquine Sulfate [Plaquenil] 200 mg PO BID 12/20/18 Pantoprazole Sodium 40 mg PO BEDTIME 12/20/18 Escitalopram [Lexapro] 10 mg PO BEDTIME 12/12/19 Albuterol Sulfate [Proair Hfa] 2 puff INH Q6H PRN 03/25/20 B12 Injection 1,000 units IM MONTHLY 03/25/20 Cyanocobalamin [B12] 1,000 mcg PO DAILY 03/25/20 Ondansetron Odt [Zofran ODT] 4 mg PO Q8HR PRN #5 tab 03/25/20 Potassium 99 mg PO BID 03/25/20 Promethazine HCl 25 mg PO Q6H PRN #10 tab 03/25/20 Rosuvastatin Calcium [Crestor] 5 mg PO MOWEFR 03/25/20 Acetaminophen W/ Codeine [Tylenol W/ CODEINE #3] 1 tab PO PRN 04/26/20 Aspirin [Aspirin EC Low Dose] 81 mg PO DAILY 04/26/20 Butalbital-Acetaminophen [Butalbital/Acetaminophen 50-325 mg] 1 tab PO PRN 04/26/20 Cephalexin 500 mg PO BEDTIME 04/26/20 Gabapentin 300 mg PO .NOON 04/26/20 Ivig 30 Gms 30 gm WKLY 04/26/20 Oxcarbazepine [Trileptal] 150 mg PO DAILY 04/26/20 Oxcarbazepine [Trileptal] 450 mg PO BEDTIME 04/26/20 Triamcinolone Acetonide (Nasal [Nasacort Allergy 24Hr] 2 inh NA BID 04/26/20
[2020-04-26 19:43] VITALS: BP 139/84; TEMP 97.8; O2SAT 93
== END 2020-04-26 19:43 | disposition home or self-care (01) ==
LOC: ER 16:29
DX: R10.9 Unspecified abdominal pain (principal); N20.0 Calculus of kidney; Z87.442 Personal history of urinary calculi; R56.9 Unspecified convulsions; J44.9 Chronic obstructive pulmonary disease, unspecified; I51.9 Heart disease, unspecified; I10 Essential (primary) hypertension; Z88.5 Allergy status to narcotic agent; Z88.8 Allergy status to other drugs, medicaments and biological substances; Z79.899 Other long term (current) drug therapy; Z79.82 Long term (current) use of aspirin
CPT/HCPCS: 36415; 74177; 80053; 81001; 83690; 85025; 87086; J1885; J2270; J2405

== ENCOUNTER → 2020-05-01 | Outpatient (CLI) | payer BC, MEDICARE ==
--- NOTE | 2020-05-02 12:43 | MRI ---
Study: MRI of the Right Ankle. Indication: achilles tendinitis Technique: Multiplanar, multi sequence MRI of the right ankle was obtained without intravenous contrast. Comparison: None Findings: No acute fracture or talar coalition. Prominent plantar calcaneal heel heel spur without rupture of the plantar fascia. Mild osteoarthritis throughout the midfoot. Low-grade tendinosis of the critical zone and distal Achilles tendon noted with low-grade interstitial tearing at these sites. No tendon rupture. Mild enthesophyte formation at the tendon insertion. Moderate reactive marrow edema within the superomedial margin of the posterior calcaneal tuberosity. No full-thickness tendon tear or retraction. Moderate retrocalcaneal bursal fluid. Trace tenosynovitis medial tendons with subtle insertional posterior tibialis tendinosis. Anterior tendons intact. Tendinosis and longitudinal split tearing peroneus brevis tendon along the posterior and inferior margins of the lateral malleolus. Peroneus longus tendon intact. Prior sprains of the anterior talofibular ligament, fibular calcaneofibular ligament, and deep deltoid ligament noted. Ankle mortise alignment normal. Minimal grade 4 chondrosis and subchondral marrow change of the lateral margin of the talar dome. Impression: Intermediate grade tendinosis critical zone and distal Achilles tendon with low-grade interstitial tearing as well as adjacent reactive edema in the posterior calcaneal tuberosity and retrocalcaneal bursal fluid. No tendon rupture. Additional findings as above. Electronically signed by: Nathan Orona MD 05/02/2020 12:42 PM CDT
== END ==
LOC: MRI 13:00
PROVIDERS: ATTEND Family Medicine Sports Medicine
DX: M76.61 Achilles tendinitis, right leg (principal); R60.9 Edema, unspecified

== ENCOUNTER 2020-06-24 17:32 | Emergency (ER) | payer BC, MEDICARE ==
[2020-06-24 17:54] VITALS: TEMP 96.3
[2020-06-24] MEDS ORDERED: SODIUM CHLORIDE 0.9% (FLUSH) 10 ML SYG IV PRN (18:00)
[2020-06-24] MEDS ORDERED: SODIUM CHLORIDE 0.9% 1000ML 1,000 ML IVS ONE (18:01)
--- NOTE | 2020-06-24 18:02 | ED.PDOC ---
History of Present Illness - General Chief Complaint: Neck Injury/Pain Stated Complaint: NECK PAIN, HEADACHE Time Seen by Provider: 06/24/20 17:59 Source: patient - History of Present Illness Initial Comments: 59 yo female with PMH of HTN, neuropathy, CIDP who presents with cc of generalized illness and headache. Patient reports onset of illness 3 days ago with gradual worsening. She reports initially primary symptoms of congestion, rhinorrhea, intermittent dry cough. 2 days ago she reported worsening with also symptoms of intermittent headache and generalized weakness and fatigue and intermittent dizziness. She went to the urgent care where she tested negative for COVID-19 and was given a steroid shot and discharged home. She reports further worsening of dizziness episodes and headache since then. She currently rates her headache as 8/10 severity, tension, located to both sides of the back of her head and radiates into the back of the neck, not worse with palpation or movement of the head or neck, has been trying Advil at home with little relief. She denies any fevers, chills, chest pain, dyspnea, leg swelling, abdominal pain, nausea/vomiting/diarrhea, urinary symptoms. PCP is Dr. Landers. She went earlier to the urgent care who vikram blood and did an EKG which was unremarkable. She called Dr. Landers's office who recommended that she come into the ED for evaluation. Allergies/Adverse Reactions: Allergies Butorphanol [From Stadol] Allergy (Severe, Verified 04/26/20 17:20) Cefprozil [From Cefzil] Allergy (Severe, Verified 04/26/20 17:20) Erythromycin Allergy (Severe, Verified 04/26/20 17:20) Hydromorphone [From Dilaudid] Allergy (Severe, Verified 04/26/20 17:20) Meperidine [From Demerol HCl] Allergy (Severe, Verified 04/26/20 17:20) Nalbuphine [From Nubain] Allergy (Severe, Verified 04/26/20 17:20) Penicillins Allergy (Severe, Verified 04/26/20 17:20) Zonisamide [From Zonegran] Allergy (Intermediate, Verified 04/26/20 17:20) Clonidine Allergy (Verified 06/24/20 17:55) Phenytoin [From Dilantin] Allergy (Verified 04/26/20 17:20) Protective Adhesive Powder Adverse Reaction (Intermediate, Verified 04/26/20 17:20) Other Causes red rash Home Medications: Ambulatory Orders Amlodipine Besylate [Norvasc] 10 mg PO QAM 01/20/13 Gabapentin 600 mg PO BID 09/23/15 Montelukast [Singulair] 10 mg PO BEDTIME 09/23/15 Nitroglycerin [Nitrostat] 0.4 mg SL PRN 09/23/15 Cetirizine HCl [ZyrTEC] 10 mg PO BEDTIME 12/20/18 Hydroxychloroquine Sulfate [Plaquenil] 200 mg PO BID 12/20/18 Pantoprazole Sodium 40 mg PO BEDTIME 12/20/18 Escitalopram [Lexapro] 10 mg PO BEDTIME 12/12/19 Albuterol Sulfate [Proair Hfa] 2 puff INH Q6H PRN 03/25/20 B12 Injection 1,000 units IM MONTHLY 03/25/20 Cyanocobalamin [B12] 1,000 mcg PO DAILY 03/25/20 Ondansetron Odt [Zofran ODT] 4 mg PO Q8HR PRN #5 tab 03/25/20 Potassium 99 mg PO BID 03/25/20 Promethazine HCl 25 mg PO Q6H PRN #10 tab 03/25/20 Rosuvastatin Calcium [Crestor] 5 mg PO MOWEFR 03/25/20 Acetaminophen W/ Codeine [Tylenol W/ CODEINE #3] 1 tab PO PRN 04/26/20 Aspirin [Aspirin EC Low Dose] 81 mg PO DAILY 04/26/20 Butalbital-Acetaminophen [Butalbital/Acetaminophen 50-325 mg] 1 tab PO PRN 04/26/20 Cephalexin 500 mg PO BEDTIME 04/26/20 Gabapentin 300 mg PO .NOON 04/26/20 Ivig 30 Gms 30 gm WKLY 04/26/20 Oxcarbazepine [Trileptal] 150 mg PO DAILY 04/26/20 Oxcarbazepine [Trileptal] 450 mg PO BEDTIME 04/26/20 Triamcinolone Acetonide (Nasal [Nasacort Allergy 24Hr] 2 inh NA BID 04/26/20 Azithromycin 250 mg PO DAILY 4 Days #4 tab 06/24/20 Review of Systems - Review of Systems Review of Systems: 06/24/20 18:45 as per HPI All other Systems: Reviewed and Negative Past Medical History (General) - Patient Medical History Hx Seizures: Yes Hx Stroke: No Hx Dementia: No Hx Asthma: Yes Hx of COPD: Yes Hx Cardiac Disorders: Yes - ID Hx Congestive Heart Failure: No Hx Pacemaker: No Hx Hypertension: Yes Hx Thyroid Disease: No Hx Diabetes: No Hx Gastroesophageal Reflux: Yes Hx Renal Disease: No Hx Cancer: No Hx of HIV: No Hx Hepatitis C: No Hx MRSA: Yes MRSA Source:: Wound Surgical History: appendectomy, Hysterectomy - Vaccination History Hx Tetanus, Diphtheria Vaccination: Yes Hx Influenza Vaccination: No Hx Pneumococcal Vaccination: Yes - Social History Hx Tobacco Use: No Hx Alcohol Use: No Hx Substance Use: No Hx Substance Use Treatment: No Hx Depression: No Hx Physical Abuse: No Hx Emotional Abuse: No Hx Suspected Abuse: No - Female History Patient : No Family Medical History - Family History Mother Family History: Unknown Living Status: Still Living Hx Cardiac Disease: Yes Physical Exam - Physical Exam General Appearance: Alert, Comfortable, No apparent distress Eye Exam: bilateral normal Ears, Nose, Throat: hearing grossly normal, normal ENT inspection, normal pharynx Neck: non-tender, full range of motion, supple, normal inspection Respiratory: chest non-tender, lungs clear, normal breath sounds, no respiratory distress, no accessory muscle use Cardiovascular/Chest: normal peripheral pulses, regular rate, rhythm, no edema, no gallop, no JVD, no murmur Peripheral Pulses: radial,right: 2+, radial,left: 2+ Gastrointestinal/Abdominal: non tender, soft, no organomegaly Back Exam: normal inspection, no CVA tenderness, no vertebral tenderness Extremity: normal range of motion, non-tender, normal inspection, no pedal edema, no calf tenderness Neurologic: truss designer II-XII nml as tested, no motor/sensory deficits, alert, normal mood/affect, oriented x 3 Skin Exam: normal color, warm/dry Progress - Progress Progress: 06/24/20 18:46 Acute illness, headache -Suspect viral infection most likely, consider viral URI, viral pneumonia, COVID-19, strep, UTI, other. Consider also PNA, ACS, CHF. Suspect headache is most likely due to acute illness, dehydration, most likely tension in nature. Consider also migraine headache. More serious etiology such as meningitis or intracranial hemorrhage appears highly unlikely. Patient is stable, vitals within normal limits, no acute distress. -Obtain blood work, cardiac work-up, and respiratory panel testing, strep throat test, UA -Place peripheral IV, 1 L normal saline bolus, Toradol 30 mg IV for headache 06/24/20 20:20 -Strep positive. Pt's COVID-19 testing 2 days ago was resulted as negative per patient. Otherwise labs largely unremarkable here. -Allergic to PCN so will treat strep with Azithromycin 500 mg in the ED then 250 mg PO daily x4 days. -Discharged home in good condition, return warnings discussed. Luis Enrique Norris MD Billing #[id number] 06/24/20 18:00 EKG STAT Laboratory Results - last 24 hr 06/24/20 06/24/20 06/24/20 18:18 18:18 18:18 WBC 8.8 RBC 4.76 Hgb 13.7 Hct 40.2 MCV 84.5 MCH 28.8 MCHC 34.0 RDW 14.2 Plt Count 199 MPV 8.8 Absolute Neuts (auto) 5.60 Absolute Lymphs (auto) 2.10 Absolute Monos (auto) 0.60 Absolute Eos (auto) 0.40 Absolute Basos (auto) 0.10 Neutrophils % 63.5 Lymphocytes % 23.6 Monocytes % 7.3 Eosinophils % 4.7 Basophils % 0.9 Sodium 142 Potassium 3.2 L Chloride 102 Carbon Dioxide 30 Anion Gap 13.2 BUN 15 Creatinine 0.81 BUN/Creatinine Ratio 18.5 Random Glucose 103 Serum Osmolality 284.2 Lactic Acid Calcium 8.7 Total Bilirubin 0.3 AST 20 ALT 16 Alkaline Phosphatase 105 Troponin I < 0.02 B-Natriuretic Peptide 74.1 Serum Total Protein 7.3 Albumin 3.7 Globulin 3.6 H Albumin/Globulin Ratio 1.0 L Urine Color Urine Appearance Urine pH Ur Specific Franklin Urine Protein Urine Glucose (UA) Urine Ketones Urine Blood Urine Nitrite Urine Bilirubin Urine Urobilinogen Ur Leukocyte Esterase Urine RBC Urine WBC Ur Epithelial Cells Amorphous Sediment Urine Bacteria Group A Strep Rapid 06/24/20 06/24/20 06/24/20 18:18 19:07 Unknown WBC RBC Hgb Hct MCV MCH MCHC RDW Plt Count MPV Absolute Neuts (auto) Absolute Lymphs (auto) Absolute Monos (auto) Absolute Eos (auto) Absolute Basos (auto) Neutrophils % Lymphocytes % Monocytes % Eosinophils % Basophils % Sodium Potassium Chloride Carbon Dioxide Anion Gap BUN Creatinine BUN/Creatinine Ratio Random Glucose Serum Osmolality Lactic Acid 1.2 Calcium Total Bilirubin AST ALT Alkaline Phosphatase Troponin I B-Natriuretic Peptide Serum Total Protein Albumin Globulin Albumin/Globulin Ratio Urine Color Yellow Urine Appearance Clear Urine pH 6.5 Ur Specific Franklin 1.020 Urine Protein Trace Urine Glucose (UA) Negative Urine Ketones Negative Urine Blood Small H Urine Nitrite Negative Urine Bilirubin Negative Urine Urobilinogen 0.2 Ur Leukocyte Esterase Negative Urine RBC 3-5 H Urine WBC 0-1 Ur Epithelial Cells 3-5 Amorphous Sediment 1+ Urine Bacteria Rare Group A Strep Rapid Positive H - EKG/XRAY/CT EKG: Sinus - Normal sinus rhythm, heart rate 75, no ST elevations or Q waves noted, left axis deviation noted, intervals normal, compared to 04/02/2020 EKG appears largely unchanged. XRAY: chest - no acute processes per my read Departure - Departure Clinical Impression: Strep pharyngitis, Tension headache Time of Disposition: 20:18 Disposition: Discharge to Home or Self Care Condition: Good Departure Forms: ED Discharge - Pt. Copy, Patient Portal Self Enrollment Instructions: DI for Neck Pain Diet: resume usual diet Activity: increase activity as tolerated Referrals: Blayne Landers III, MD [Primary Care Provider] - 1-2 Weeks Prescriptions: Azithromycin 250 mg PO DAILY 4 Days #4 tab Home Medications: Ambulatory Orders Amlodipine Besylate [Norvasc] 10 mg PO QAM 01/20/13 Gabapentin 600 mg PO BID 09/23/15 Montelukast [Singulair] 10 mg PO BEDTIME 09/23/15 Nitroglycerin [Nitrostat] 0.4 mg SL PRN 09/23/15 Cetirizine HCl [ZyrTEC] 10 mg PO BEDTIME 12/20/18 Hydroxychloroquine Sulfate [Plaquenil] 200 mg PO BID 12/20/18 Pantoprazole Sodium 40 mg PO BEDTIME 12/20/18 Escitalopram [Lexapro] 10 mg PO BEDTIME 12/12/19 Albuterol Sulfate [Proair Hfa] 2 puff INH Q6H PRN 03/25/20 B12 Injection 1,000 units IM MONTHLY 03/25/20 Cyanocobalamin [B12] 1,000 mcg PO DAILY 03/25/20 Ondansetron Odt [Zofran ODT] 4 mg PO Q8HR PRN #5 tab 03/25/20 Potassium 99 mg PO BID 03/25/20 Promethazine HCl 25 mg PO Q6H PRN #10 tab 03/25/20 Rosuvastatin Calcium [Crestor] 5 mg PO MOWEFR 03/25/20 Acetaminophen W/ Codeine [Tylenol W/ CODEINE #3] 1 tab PO PRN 04/26/20 Aspirin [Aspirin EC Low Dose] 81 mg PO DAILY 04/26/20 Butalbital-Acetaminophen [Butalbital/Acetaminophen 50-325 mg] 1 tab PO PRN 04/26/20 Cephalexin 500 mg PO BEDTIME 04/26/20 Gabapentin 300 mg PO .NOON 04/26/20 Ivig 30 Gms 30 gm WKLY 04/26/20 Oxcarbazepine [Trileptal] 150 mg PO DAILY 04/26/20 Oxcarbazepine [Trileptal] 450 mg PO BEDTIME 04/26/20 Triamcinolone Acetonide (Nasal [Nasacort Allergy 24Hr] 2 inh NA BID 04/26/20 Azithromycin 250 mg PO DAILY 4 Days #4 tab 06/24/20 Additional Instructions: Remain well-hydrated and advance your diet and activity level as tolerated. You may continue taking [id number] medications for pain and headache such as ibuprofen 600 mg every 6 hours as needed and Tylenol 650 mg every 6 hours as needed. Return to the ED if you develop new or concerning symptoms such as chest pain, shortness of breath, abdominal pain, intractable nausea or vomiting, worsening headache and neck pain, neck stiffness with fevers, etc. Follow-up with your primary care physician is recommended in the next 3 to 5 days or sooner as needed.
[2020-06-24] MEDS ORDERED: KETOROLAC TROMETHAMINE INJ 30 MG/ML VIAL IV ONE (18:42)
--- NOTE | 2020-06-24 18:51 | RAD ---
EXAM: XR Chest, 1 View CLINICAL HISTORY: dizzy and weak TECHNIQUE: Frontal view of the chest. COMPARISON: 04/02/2020 FINDINGS: Lungs: No consolidation. Symmetrical vascular pattern. Pleural space: No pneumothorax or pleural effusion. Heart: Normal cardiac size and configuration. Mediastinum: No abnormality noted. Bones/joints: No osseous destruction or sclerosis noted. Tubes, lines and devices: Right central venous port terminates in the distal 3rd of the SVC. IMPRESSION: No acute findings in the chest. Electronically signed by: Marisol Flores MD 06/24/2020 6:49 PM CDT
[2020-06-24 20:07] VITALS: BP 140/79; O2SAT 96
[2020-06-24] MEDS ORDERED: AZITHROMYCIN 250 MG TAB PO ONE (20:10)
[2020-06-24] MEDS ORDERED: PROMETHAZINE HCL INJ 12.5 MG in SODIUM CHLORIDE 0.9% 50ML 50 ML IVPB ONE (20:10)
[2020-06-24] MEDS ORDERED: HEPARIN SODIUM 100 U/ML 5 ML SYG IV ONE (20:24)
== END 2020-06-24 20:29 | disposition home or self-care (01) ==
LOC: ER 17:32
DX: J02.0 Streptococcal pharyngitis (principal); G44.209 Tension-type headache, unspecified, not intractable; R56.9 Unspecified convulsions; J44.9 Chronic obstructive pulmonary disease, unspecified; I25.2 Old myocardial infarction; I10 Essential (primary) hypertension; K21.9 Gastro-esophageal reflux disease without esophagitis; Z79.899 Other long term (current) drug therapy; Z79.82 Long term (current) use of aspirin; Z88.8 Allergy status to other drugs, medicaments and biological substances; Z88.0 Allergy status to penicillin; Z88.5 Allergy status to narcotic agent
CPT/HCPCS: 36415; 71045; 80053; 81001; 83605; 83880; 84484; 85025; 87880; 93005; 94760; A4216; J1642; J1885; J2550; J7030; Q0144